=== PATIENT | female | born 1930 | race Hispanic/Latino ===

== ENCOUNTER 2017-08-13 17:11 | Inpatient (IN) | payer MEDICARE, MEDICAID ==
--- NOTE | 2017-08-13 17:23 | ED PDOC ---
Arrival/HPI - General Time Seen by Provider: 08/13/17 17:15 Historian: Family (Daughter), EMS - History of Present Illness Narrative History of Present Illness (Text): 08/13/17 17:16 A 87 year old female, whose past medical history includes diabetes, hypertension , and hypothyroidism, brought into the emergency department by EMS for chest pain and shortness of breath. Daughter reports patient woke up feeling weak this morning which worsened throughout the day. Patient began complaining of chest pain with shortness of breath 1 hour prior to arrival. EMS reports patients oxygen saturation was 80% on non rebreather and then 90% when placed on CPAP. Patient was given 40 mg of lasix, 2 sublingual nitroglycerin and 1/2 inch nitro paste. Patient unable to provide any further information at this time. PMD: Dr. Sol Supervisor Grounds: Dr. Lynn Time/Duration: 1 hour ([employer]) Symptom Course: Worsening Quality: Other Context: Home Past Medical History - Provider Review Nursing Documentation Reviewed: Yes - Infectious Disease Hx of Infectious Diseases: None - Cardiac Hx Cardiac Disorders: Yes (TRIPLE VESSEL DSE) Hx Hypertension: Yes - Pulmonary Hx Respiratory Disorders: No - Neurological Hx Neurological Disorder: (NEUROPATHY) - HEENT Hx HEENT Disorder: Yes (WEARS RX GLASSES,EYE SURGERY) Hx Cataracts: Yes - Renal Hx Renal Disorder: No - Endocrine/Metabolic Hx Endocrine Disorders: Yes Hx Diabetes Mellitus Type 1: Yes Hx Diabetes Mellitus Type 2: Yes Hx Hypothyroidism: Yes - Hematological/Oncological Hx Blood Disorders: No Hx Blood Transfusions: No - Integumentary Hx Dermatological Disorder: No - Musculoskeletal/Rheumatological Hx Musculoskeletal Disorders: Yes Hx Arthritis: Yes (OSTEOARTHRITIS) - Gastrointestinal Hx Gastrointestinal Disorders: Yes Hx Gall Bladder Disease: Yes (CHOLECYSTECTOMY) - Genitourinary/Gynecological Hx Genitourinary Disorders: Yes (URGENCY) - Psychiatric Hx Psychophysiologic Disorder: Yes (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) Hx Emotional Abuse: No Hx Physical Abuse: No Hx Substance Use: No - Surgical History Hx Cardiac Catheterization: Yes Hx Cholecystectomy: Yes Hx Hysterectomy: Yes - Anesthesia Hx Anesthesia Reactions: No Hx Malignant Hyperthermia: No - Suicidal Assessment Feels Threatened In Home Enviroment: No Family/Social History - Physician Review Nursing Documentation Reviewed: Yes Family/Social History: No Known Family HX Smoking Status: Never Smoked Hx Alcohol Use: No Hx Substance Use: No Allergies/Home Meds Allergies/Adverse Reactions: Allergies IV Contrast Allergy (Uncoded 08/13/17 17:17) ANAPHYLAXIS CONTRAST DYE Adverse Reaction (Uncoded 08/13/17 17:17) CHANGE IN MENTAL STATUS Home Medications: Home Meds Medication Instructions Recorded Confirmed Insulin Glargine,Hum.rec.anlog 25 unit SC QAM 12/21/14 08/13/17 [Lantus] Aspirin [Aspirin Chewable] 81 mg PO DAILY 01/22/16 08/13/17 Cholecalciferol (Vitamin D3) 50,000 units PO .WEEKLY 01/22/16 08/13/17 [Vitamin D] Clopidogrel [Plavix] 75 mg PO DAILY 01/22/16 08/13/17 Glimepiride [Glimepiride] 4 mg PO DAILY 01/22/16 08/13/17 Insulin Detemir [Levemir] 45 - 50 units SC .AM 01/22/16 08/13/17 Isosorbide Mononitrate [Isosorbide 30 mg PO DAILY 01/22/16 08/13/17 Mononitrate ER] Levothyroxine [Synthroid] 125 mcg PO DAILY 01/22/16 08/13/17 Linagliptin [Tradjenta] 5 mg PO DAILY 01/22/16 08/13/17 Metformin HCl [Metformin HCl] 850 mg PO DAILY 01/22/16 08/13/17 Metoprolol Tartrate [Lopressor] 25 mg PO BID 01/22/16 08/13/17 Rosuvastatin Calcium [Crestor] 5 mg PO DAILY 01/22/16 08/13/17 Valsartan/Hydrochlorothiazide 1 tab PO DAILY 01/22/16 08/13/17 [Valsartan-Hctz 160-25 mg Tab] amLODIPine [Norvasc] 5 mg PO DAILY 01/22/16 08/13/17 Cilostazol [Pletal] 2 tab PO DAILY 08/13/17 08/13/17 Review of Systems - Review of Systems Systems not reviewed;Unavailable: Acuity of Condition Physical Exam Vital Signs Temp Pulse Resp BP Pulse Ox 08/13/17 23:04 133 H 18 114/74 96 08/13/17 21:58 133 H 108/67 08/13/17 21:26 131 H 18 98/70 L 100 08/13/17 20:11 133 H 113/69 08/13/17 20:05 132 H 18 113/69 100 08/13/17 18:57 132 H 16 125/76 100 08/13/17 17:46 124 H 34 H 130/82 97 08/13/17 17:22 97.6 F 133 H 36 H 172/101 H 95 - Systems Exam Head: Present: Atraumatic, Normocephalic Pupils: Present: PERRL Extroacular Muscles: Present: EOMI Conjunctiva: Present: Normal Respiratory/Chest: Present: Respiratory Distress, Rales (bilaterally). No: Accessory Muscle Use Cardiovascular: Present: Regular Rate and Rhythm, Normal S1, S2. No: Murmurs Abdomen: Present: Normal Bowel Sounds. No: Tenderness, Distention, Peritoneal Signs Upper Extremity: Present: Normal Inspection. No: Cyanosis, Edema Lower Extremity: Present: Normal Inspection. No: Edema Skin: Present: Warm, Dry, Normal Color. No: Rashes Medical Decision Making ED Course and Treatment: 08/13/17 17:32 EKG shows sinus tachycardia at 134 BPM with nonspecific IVCD, nonspecific ST/T wave abnormalities. Interpreted by me. 08/13/17 17:45 Patient placed on BiPAP, she appears to be much more comfortable at this time. - Critical Care Critical Care Minutes: 45 minutes - Lab Interpretations Lab Results: 08/13/17 17:26 08/13/17 19:35 Lab Results 08/13/17 19:35: Sodium 134, Potassium 3.9, Chloride 98, Carbon Dioxide 24, Anion Gap 17, BUN 20, Creatinine 1.0, Est GFR ( Amer) > 60, Est GFR (Non- Af Amer) 52, Random Glucose 285 H, Calcium 9.2, Total Bilirubin 0.4, AST 36, ALT 22, Alkaline Phosphatase 83, Troponin I 0.06, NT-Pro-B Natriuret Pep 3860 H , Total Protein 8.1, Albumin 4.1, Globulin 4.0, Albumin/Globulin Ratio 1.0 L 08/13/17 18:26: Urine Color Yellow, Urine Appearance Clear, Urine pH 6.0, Ur Specific [place] 1.015, Urine Protein Trace H, Urine Glucose (UA) 500 H, Urine Ketones 15 H, Urine Blood Trace-lysed H, Urine Nitrate Negative, Urine Bilirubin Negative, Urine Urobilinogen 0.2, Ur Leukocyte Esterase Negative, Urine RBC 1 - 3, Urine WBC 2 - 5, Ur Epithelial Cells 3 - 4, Urine Bacteria Few 08/13/17 18:00: pCO2 31 L, pO2 170.0 H, HCO3 19.2 L, ABG pH 7.40, ABG Total CO2 20.2 L, ABG O2 Saturation 98.6 H, ABG O2 Content 17.7, ABG Base Excess -4.6 L, ABG Hemoglobin 12.9, ABG Carboxyhemoglobin 1.6 H, POC ABG HHb (Measured) 1.4, ABG Methemoglobin 1.1, ABG O2 Capacity 18.0, Hgb O2 Saturation 95.9, FiO2 100.0 08/13/17 17:26: PT 10.7, INR 0.98, APTT 26.5 08/13/17 17:26: WBC 21.6 H D, RBC 4.36, Hgb 13.6, Hct 40.3, MCV 92.4, MCH 31.2, MCHC 33.7, RDW 14.8 H, Plt Count 428, MPV 9.5, Gran % 62.3, Lymph % (Auto) 32.1 , [place] % (Auto) 5.0, Eos % (Auto) 0.4 L, Baso % (Auto) 0.2, Gran # 13.45 H, Lymph # 6.9 H, Preston # 1.1 H, Eos # 0.1, Baso # 0.05 - RAD Interpretation Radiology Orders: 08/13/17 17:20 CHEST PORTABLE [RAD] Stat - Medication Orders Current Medication Orders: Aspirin (Aspirin Chewable) 81 mg PO DAILY [facility] Last Admin: 08/15/17 09:00 Dose: 81 mg Atorvastatin Calcium (Lipitor) 10 mg PO DIN [facility] Last Admin: 08/15/17 17:40 Dose: 10 mg Clopidogrel Bisulfate (Plavix) 75 mg PO DAILY [facility] Last Admin: 08/15/17 08:59 Dose: 75 mg Furosemide (Lasix) 40 mg IVP BID [facility] Last Admin: 08/15/17 17:41 Dose: 40 mg MAR Blood Pressure Document 08/15/17 17:41 RAMOM (Rec: 08/15/17 17:41 [facility] [id number]) Blood Pressure Blood Pressure (100/60-150/90) 118/59 IVP Administration Document 08/15/17 17:41 RAMOM (Rec: 08/15/17 17:41 [facility] [id number]) Charges for Administration # of IVP Administrations 1 Heparin Sodium/Sodium Chloride (Heparin 71469 Units/250ml 1/2 Normal Saline) 25 ,000 units in 250 mls @ 10.018 mls/hr IV .Q24H PRN; Protocol; 18 UNITS/KG/HR PRN Reason: ADJUST RATE PER PROTOCOL Last Titration: 08/15/17 07:42 Dose: 17 units/kg/hr, 9.462 mls/hr Titration Intervention Document 08/15/17 07:42 RAMOM (Rec: 08/15/17 07:45 [facility] [id number]) Titration Intake Titration Intake 100 Cumulative Intake 100 Cumulative Intake (Rx) 350 Waste Amount 0 Container Volume 150 Titration Dosing Titration Dose 17 IV Rate 9.462 Intake/Decrease Increased Cumulative Dose 99698 Insulin Detemir (Levemir) 30 unit SC HS [facility] Insulin Human Regular (Humulin R High) 0 units SC ACHS [facility] PRN Reason: Protocol Last Admin: 08/15/17 17:36 Dose: 12 units MAR Blood Glucose Document 08/15/17 17:36 RAMOM (Rec: 08/15/17 17:36 [facility] [id number]) Blood Glucose Finger Stick Blood Glucose (70-120) 349 Subcutaneous Administrations Document 08/15/17 17:36 RAMOM (Rec: 08/15/17 17:36 [facility] [id number]) Injection Site MAR Injection Site Right Arm Charges for Administration # of Subcutaneous Administrations 1 Levothyroxine Sodium (Synthroid) 150 mcg PO ACB [facility] Pantoprazole Sodium (Protonix Ec Tab) 40 mg PO DAILY [facility] Last Admin: 08/15/17 09:00 Dose: 40 mg Simethicone (Mylicon Liq) 40 mg PO QID [facility] Last Admin: 08/15/17 17:42 Dose: 40 mg Verapamil HCl (Verapamil Inj) 2.5 mg IVP Q6H PRN PRN Reason: For heart rate>130 Verapamil HCl (Calan Tab) 80 mg PO TID [facility] Last Admin: 08/15/17 17:40 Dose: 80 mg MAR Pulse and Blood Pressure Document 08/15/17 17:40 RAMOM (Rec: 08/15/17 17:40 [id number]) Pulse Pulse Rate (60-90) 85 Blood Pressure Blood Pressure (100/60-150/90) 118/59 Discontinued Medications Adenosine (Adenosine 6 Mg/2 Ml Inj) 6 mg IVP ONCE ONE Stop: 08/14/17 07:46 Last Admin: 08/14/17 08:08 Dose: 6 mg IVP Administration Document 08/14/17 08:08 RAMOM (Rec: 08/14/17 08:08 [id number]) Charges for Administration # of IVP Administrations 1 Aspirin (Aspirin Supp) 300 mg RC STAT STA Stop: 08/13/17 17:36 Last Admin: 08/13/17 18:02 Dose: 300 mg MAR Pain/Vitals Document 08/13/17 18:02 OCS (Rec: 08/13/17 18:03 OCS [id number]) Pain Reassessment Is This A Pain ReAssessment? Yes Sleep Is patient sleeping during reassessment? No Presence of Pain Presence of Pain No Digoxin (Lanoxin) 0.25 mg IVP ONCE ONE Stop: 08/15/17 08:14 Last Admin: 08/15/17 08:52 Dose: 0.25 mg MAR Apical Pulse Rate Document 08/15/17 08:52 RAMOM (Rec: 08/15/17 08:53 [id number]) Apical Pulse Rate Apical Pulse Rate (60-90 beats/min) 129 IVP Administration Document 08/15/17 08:52 RAMOM (Rec: 08/15/17 08:53 [id number]) Charges for Administration # of IVP Administrations 1 Digoxin (Lanoxin) 0.25 mg IVP ONCE ONE Stop: 08/15/17 13:01 Last Admin: 08/15/17 13:22 Dose: 0.25 mg MAR Apical Pulse Rate Document 08/15/17 13:22 RAMOM (Rec: 08/15/17 13:22 [id number]) Apical Pulse Rate Apical Pulse Rate (60-90 beats/min) 103 IVP Administration Document 08/15/17 13:22 RAMOM (Rec: 08/15/17 13:22 [id number]) Charges for Administration # of IVP Administrations 1 Diltiazem HCl (Cardizem) 10 mg IVP STAT STA Stop: 08/13/17 21:31 Last Admin: 08/13/17 21:58 Dose: 10 mg IVP Administration Document 08/13/17 21:58 IT (Rec: 08/13/17 21:59 IT [id number]) Charges for Administration # of IVP Administrations 1 MAR Pulse and Blood Pressure Document 08/13/17 21:58 IT (Rec: 08/13/17 21:59 IT [id number]) Pulse Pulse Rate (60-90) 133 Blood Pressure Blood Pressure (100/60-150/90) 108/67 Furosemide (Lasix) 20 mg IVP Q12 [facility] Last Admin: 08/15/17 09:00 Dose: 20 mg MAR Blood Pressure Document 08/15/17 09:00 RAMOM (Rec: 08/15/17 09:00 [id number]) Blood Pressure Blood Pressure (100/60-150/90) 138/73 IVP Administration Document 08/15/17 09:00 RAMOM (Rec: 08/15/17 09:00 [facility] [id number]) Charges for Administration # of IVP Administrations 1 Furosemide (Lasix) 40 mg IVP ONCE ONE Stop: 08/15/17 12:15 Last Admin: 08/15/17 13:21 Dose: 40 mg MAR Blood Pressure Document 08/15/17 13:21 RAMOM (Rec: 08/15/17 13:22 [facility] [id number]) Blood Pressure Blood Pressure (100/60-150/90) 120/68 IVP Administration Document 08/15/17 13:21 RAMOM (Rec: 08/15/17 13:22 [id number]) Charges for Administration # of IVP Administrations 1 Heparin Sodium (Porcine) (Heparin) 3,800 units 70 units/kg (3800 units) IV ONCE ONE PRN Reason: Protocol Stop: 08/13/17 21:31 Last Admin: 08/13/17 21:59 Dose: 3,800 units eMAR Start Stop Document 08/13/17 21:59 IT (Rec: 08/13/17 22:00 IT [id number]) Intravenous Solution Start Date 08/13/17 Start Time 22:00 Heparin Sodium (Porcine) (Heparin) 2,300 units IV ONCE ONE Stop: 08/15/17 08:01 Last Admin: 08/15/17 08:00 Dose: 2,300 units eMAR Start Stop Document 08/15/17 08:00 RAMOM (Rec: 08/15/17 08:03 [facility] [id number]) Intravenous Solution Start Date 08/15/17 Start Time 08:00 End Date 08/15/17 End time 08:05 Total Infusion Time 5 Heparin Sodium/Sodium Chloride (Heparin 78313 Units/250ml 1/2 Normal Saline) 25 ,000 units in 250 mls @ 9.716 mls/hr IV .Q24H PRN; Protocol; 18 UNITS/KG/HR PRN Reason: ADJUST RATE PER PROTOCOL Last Admin: 08/13/17 22:13 Dose: 18 units/kg/hr, 9.716 mls/hr eMAR Start Stop Document 08/13/17 22:13 IT (Rec: 08/13/17 22:14 IT [id number]) Intravenous Solution Start Date 08/13/17 Start Time 22:13 Titration Intervention Document 08/13/17 22:13 IT (Rec: 08/13/17 22:14 IT [id number]) Titration Intake Waste Amount 0 Container Volume 250 Titration Dosing Titration Dose 18 IV Rate 9.716 Intake/Decrease Started Heparin Sodium/Dextrose (Heparin 25,000 Units/250ml In D5w) 25,000 units in 250 mls @ 10.018 mls/hr IV .Q24H PRN; Protocol; 18 UNITS/KG/HR PRN Reason: ADJUST RATE PER PROTOCOL Last Admin: 08/13/17 22:48 Dose: 18 units/kg/hr, 10.018 mls/hr eMAR Start Stop Document 08/13/17 22:48 IT (Rec: 08/13/17 22:48 IT [id number]) Intravenous Solution Start Date 08/13/17 Start Time 22:48 Titration Intervention Document 08/13/17 22:48 IT (Rec: 08/13/17 22:48 IT [id number]) Titration Intake Waste Amount 0 Container Volume 250 Titration Dosing Titration Dose 18 IV Rate 10.018 Intake/Decrease Started Amiodarone HCl/Dextrose (Nexterone 150 Mg In Dextrose 100 Ml (Premix)) 150 mg in 100 mls @ 600 mls/hr IVPB ONCE ONE PRN Reason: Protocol Stop: 08/14/17 03:21 Last Admin: 08/14/17 03:24 Dose: 600 mls/hr eMAR Start Stop Document 08/14/17 03:24 QES (Rec: 08/14/17 03:24 [facility]ES [id number]) Intravenous Solution Start Date 08/14/17 Start Time 03:24 End Date 08/14/17 End time 03:34 Total Infusion Time 10 Amiodarone HCl/Dextrose (Nexterone 360 Mg In D5w 200 Ml (Premix)) 360 mg in 200 mls @ 33.333 mls/hr IV .Q6H [facility]; 1 MG/MIN PRN Reason: Protocol Last Admin: 08/14/17 03:35 Dose: 33.333 mls/hr eMAR Start Stop Document 08/14/17 03:35 QES (Rec: 08/14/17 03:36 [id number]) Intravenous Solution Start Date 08/14/17 Start Time 03:36 End Date 08/14/17 End time 07:30 Total Infusion Time 234 diltiaZEM IVPB 100mg in NS (Cardizem 100mg In Ns) 100 mls @ 5 mls/hr IV .Q20H PRN; Protocol; 5 MG/HR PRN Reason: TITRATE PER MD ORDER Stop: 08/15/17 11:00 Last Titration: 08/15/17 10:00 Dose: 0 mg/hr, 0 mls/hr Titration Intervention Document 08/15/17 10:00 RAMOM (Rec: 08/15/17 11:59 [id number]) Titration Intake Titration Intake 5 Cumulative Intake 100 Cumulative Intake (Rx) 200 Waste Amount 0 Container Volume 0 Titration Dosing Titration Dose 0 IV Rate 0 Intake/Decrease Infused Cumulative Dose 200 Potassium Chloride (Potassium Chloride 20 Meq/100 Ml) 20 meq in 100 mls @ 50 mls/hr IVPB Q2H [facility] Stop: 08/14/17 11:29 Last Admin: 08/14/17 11:45 Dose: 50 mls/hr eMAR Start Stop Document 08/14/17 11:45 RAMOM (Rec: 08/14/17 12:11 [id number]) Intravenous Solution Start Date 08/14/17 Start Time 11:45 End Date 08/14/17 End time 14:45 Total Infusion Time 180 Insulin Human Regular (Humulin R Med) 0 units SC ACHS [facility] PRN Reason: Protocol Last Admin: 08/15/17 08:04 Dose: 3 units MAR Blood Glucose Document 08/15/17 08:04 RAMOM (Rec: 08/15/17 08:04 [id number]) Blood Glucose Finger Stick Blood Glucose (70-120) 201 Subcutaneous Administrations Document 08/15/17 08:04 RAMOM (Rec: 08/15/17 08:04 [id number]) Injection Site MAR Injection Site Left Arm Charges for Administration # of Subcutaneous Administrations 1 Lactulose (Enulose) 20 gm PO ONCE STA Stop: 08/15/17 08:58 Last Admin: 08/15/17 09:01 Dose: 20 gm Levothyroxine Sodium (Synthroid) 125 mcg PO ACB [facility] Last Admin: 08/14/17 08:18 Dose: 125 mcg Levothyroxine Sodium (Synthroid) 200 mcg PO 0600 [facility] Last Admin: 08/15/17 06:02 Dose: 200 mcg Metoprolol Tartrate (Lopressor) 5 mg IVP STAT STA Stop: 08/13/17 20:05 Last Admin: 08/13/17 20:11 Dose: 5 mg IVP Administration Document 08/13/17 20:11 IT (Rec: 08/13/17 20:11 IT [id number]) Charges for Administration # of IVP Administrations 1 MAR Pulse and Blood Pressure Document 08/13/17 20:11 IT (Rec: 08/13/17 20:11 IT [id number]) Pulse Pulse Rate (60-90) 133 Blood Pressure Blood Pressure (100/60-150/90) 113/69 Metoprolol Tartrate (Lopressor) 25 mg PO BID [facility] Metoprolol Tartrate (Lopressor) 5 mg IVP ONCE ONE Stop: 08/14/17 00:30 Last Admin: 08/14/17 00:47 Dose: 5 mg IVP Administration Document 08/14/17 00:47 QES (Rec: 08/14/17 00:47 QES [id number]) Charges for Administration # of IVP Administrations 1 MAR Pulse and Blood Pressure Document 08/14/17 00:47 QES (Rec: 08/14/17 00:47 QES [id number]) Pulse Pulse Rate (60-90) 137 Blood Pressure Blood Pressure (100/60-150/90) 113/75 Pantoprazole Sodium (Protonix Inj) 40 mg IVP DAILY [facility] Last Admin: 08/14/17 10:13 Dose: 40 mg IVP Administration Document 08/14/17 10:13 RAMOM (Rec: 08/14/17 10:13 [id number]) Charges for Administration # of IVP Administrations 1 Pneumococcal Polyvalent Vaccine (Pneumovax 23 Vaccine) 0.5 ml IM .ONCE ONE Stop: 08/14/17 02:44 Last Admin: 08/14/17 03:15 Dose: MAR Immunization Data Document 08/14/17 03:15 QES (Rec: 08/14/17 03:15 [facility] [id number]) Immunization Data Vaccine Information Sheet Given No Immunization Registry Document 08/14/17 03:15 QES (Rec: 08/14/17 03:15 [facility] [id number]) Immunization Registry Consent Date 08/08/17 Polyethylene Glycol (Miralax) 17 gm PO ONCE ONE Stop: 08/14/17 18:06 Last Admin: 08/14/17 18:08 Dose: 17 gm Polyethylene Glycol (Miralax) 17 gm PO ONCE ONE Stop: 08/15/17 13:05 Last Admin: 08/15/17 13:21 Dose: 17 gm Verapamil HCl (Verapamil Inj) 2.5 mg IVP STAT STA Stop: 08/13/17 23:13 Last Admin: 08/13/17 23:30 Dose: 2.5 mg IVP Administration Document 08/13/17 23:30 QES (Rec: 08/13/17 23:31 [id number]) Charges for Administration # of IVP Administrations 1 MAR Pulse and Blood Pressure Document 08/13/17 23:30 QES (Rec: 08/13/17 23:31 [id number]) Pulse Pulse Rate (60-90) 135 Blood Pressure Blood Pressure (100/60-150/90) 133/79 Verapamil HCl (Verapamil Inj) 2.5 mg IVP ONCE ONE Stop: 08/14/17 08:05 Last Admin: 08/14/17 10:13 Dose: 2.5 mg IVP Administration Document 08/14/17 10:13 RAMOM (Rec: 08/14/17 10:14 [id number]) Charges for Administration # of IVP Administrations 1 MAR Pulse and Blood Pressure Document 08/14/17 10:13 [facility] (Rec: 08/14/17 10:14 [id number]) Pulse Pulse Rate (60-90) 126 Blood Pressure Blood Pressure (100/60-150/90) 115/63 Verapamil HCl (Calan Tab) 40 mg PO TID [facility] Last Admin: 08/14/17 18:03 Dose: 40 mg MAR Pulse and Blood Pressure Document 08/14/17 18:03 RAMOM (Rec: 08/14/17 18:04 [id number]) Pulse Pulse Rate (60-90) 118 Blood Pressure Blood Pressure (100/60-150/90) 103/65 - Scribe Statement The provider has reviewed the documentation as recorded by the Sinibdavid Greenberg Provider Scribe Attestation: All medical record entries made by the Scribe were at my direction and personally dictated by me. I have reviewed the chart and agree that the record accurately reflects my personal performance of the history, physical exam, medical decision making, and the department course for this patient. I have also personally directed, reviewed, and agree with the discharge instructions and disposition. Disposition/Present on Arrival - Present on Arrival Any Indicators Present on Arrival: No History of DVT/PE: No History of Uncontrolled Diabetes: No Urinary Catheter: No History Surgical Site Infection Following: None - Disposition Have Diagnosis and Disposition been Completed?: Yes Diagnosis: Acute respiratory failure, CHF exacerbation Disposition: HOSPITALIZED Disposition Time: 19:56 Condition: GUARDED
[2017-08-13 17:42] LABS: BASO # 0.05 K/mm3 (0.0-2.0); BASO % 0.2 % (0.0-3.0); EOS # 0.1 (0.0-0.7); EOS % 0.4 % (1.5-5.0); GRAN # 13.45 (1.4-6.5); GRAN % 62.3 % (50.0-68.0); HEMATOCRIT 40.3 % (36.0-48.0); LYMPH # 6.9 (1.2-3.4); LYMPH % 32.1 % (22.0-35.0); MEAN CELL VOLUME 92.4 fl (80.0-105.0); MEAN CORPUSCULAR HEMOGLOBIN 31.2 pg (25.0-35.0); MEAN CORPUSCULAR HGB CONC 33.7 g/dl (31.0-37.0); MEAN PLATELET VOLUME 9.5 fl (7.0-11.0); MONO # 1.1 (0.1-0.6); RED CELL DISTRIBUTION WIDTH 14.8 % (11.5-14.5); WHITE BLOOD COUNT 21.6 10^3/ul (4.5-11.0)
[2017-08-13 17:52] LABS: INR 0.98 (0.93-1.08)
[2017-08-13 17:53] LABS: PARTIAL THROMBOPLASTIN TIME 26.5 Seconds (25.1-36.5)
--- NOTE | 2017-08-13 18:09 | RAD ---
HISTORY: Shortness of breath COMPARISON: 01/24/2015. FINDINGS: LUNGS: There is severe pulmonary venous congestion and mild interstitial pulmonary edema. PLEURA: There are bilateral pleural effusions, no pneumothorax apparent. CARDIOVASCULAR: There is mild cardiomegaly. OSSEOUS STRUCTURES: Within normal limits for the patient's age. VISUALIZED UPPER ABDOMEN: Normal. OTHER FINDINGS: None. IMPRESSION: Findings are most compatible with congestive heart failure.
[2017-08-13 18:15] LABS: ARTERIAL BLOOD GAS HCO3 19.2 mmol/L (21-28); ARTERIAL BLOOD GAS O2 CONTENT 17.7 ML/dl (15-23); ARTERIAL BLOOD HGB O2 SAT 95.9 % (95.0-98.0); CARBOXYHEMOGLOBIN 1.6 % (0.5-1.5); HHB 1.4 % (0-5); METHEMOGLOBIN 1.1 % (0.0-3.0)
[2017-08-13 18:51] LABS: URINE BILIRUBIN NEGATIVE (NEGATIVE); URINE BLOOD TRACE-LYSED (NEGATIVE); URINE GLUCOSE (UA) 500 mg/dL (NEGATIVE); URINE KETONE 15 mg/dL (NEGATIVE); URINE LEUKOCYTE ESTERASE NEGATIVE Leu/uL (NEGATIVE); URINE PROTEIN TRACE mg/dL (<30 mg/dL); URINE UROBILINOGEN 0.2 E.U./dL (<1 E.U./dL)
[2017-08-13 18:54] LABS: URINE APPEARANCE CLEAR (CLEAR); URINE COLOR YELLOW (YELLOW)
[2017-08-13 18:57] LABS: URINE BACTERIA FEW (NEG)
--- NOTE | 2017-08-13 19:36 | CARD ---
APPROVED REPORT EKG Measurement Heart [id number] <Conclusion> Atrial fibrillation with rapid ventricular response Nonspecific intraventricular block Cannot rule out Septal infarct, age undetermined T wave abnormality, consider lateral ischemia or digitalis effect Abnormal ECG
[2017-08-13 19:50] LABS: ALKALINE PHOSPHATASE 83 U/L (38-126); ALT/SGPT 22 U/L (7-56); AST/SGOT 36 U/L (14-36); BILIRUBIN,TOTAL 0.4 mg/dL (0.2-1.3); BLOOD UREA NITROGEN 20 mg/dL (7-21); CALCIUM 9.2 mg/dL (8.4-10.5); CARBON DIOXIDE 24 mmol/L (21-33); CHLORIDE 98 mmol/L (98-107); GFR AFRICAN-AMERICAN > 60; GLUCOSE,RANDOM 285 mg/dL (70-110); POTASSIUM 3.9 mmol/L (3.6-5.0); SODIUM 134 mmol/L (132-148); TOTAL PROTEIN 8.1 g/dL (5.8-8.3)
[2017-08-13 20:02] LABS: TROPONIN I 0.06 ng/mL
[2017-08-13] MEDS ORDERED: Metoprolol 1 mg/ml Inj IVP STA (20:04)
--- NOTE | 2017-08-13 20:11 | CP.PCM.HP ---
<Praneeth Reed - Last Filed: 08/13/17 22:02> History of Present Illness - History of Present Illness History of Present Illness: CC: chest palpitations Subjective: HPI: Patient is a 87 year old female, whose past medical history includes diabetes, hypertension, and hypothyroidism, who presents to the ED via EMS for evaluation and treatment of chest palipitations and shortness of breath. Daughter is at bedside. Daughter states patient woke up feeling weak this morning which worsened throughout the day. Patient denies specific provoking events. Also admitted to chest palpitations with chest discomfort. Denies recent travel and sick contacts. Patient began complaining of nonradiating chest pain with shortness of breath 1 hour prior to arrival. As per the ED note, the EMS reports patients oxygen saturation was 80% on non rebreather and then 90% when placed on CPAP. Patient was given 40 mg of lasix, 2 sublingual nitroglycerin and 1/2 inch nitro paste in route to ED. Patient denies intractable headache, fever, chills, dizziness, blurry vision, ringing in the ears, abdominal pain, nausea, vomiting, diarrhea, constipation, and urinary symptoms. ROS: 12 point review of systems negative except as indicated in HPI PMHx: diabetes, hypertension, and hypothyroidism PSHx: cholecystecomy, hysterectomy, thyroidectomy Family Hx: noncontributory Social Hx: denies ETOH use, tobacco use, illicit drug use Medications: Please see medication reconciliation PMD: Dr. Sol Solid Surface Fabricator: Dr. Lynn Physical Examination: - Constitutional Appears: Non-toxic, No Acute Distress - Head Exam Head Exam: atraumatic, normocephalic - Eye Exam Eye Exam: Normal appearance, PERRL. absent: Scleral icterus - ENT Exam ENT Exam: Mucous Membranes Moist - Neck Exam Neck exam: Normal Inspection - Respiratory Exam Respiratory Exam: Normal Breathing Pattern; bibasilar crackles - Cardiovascular Exam Cardiovascular Exam: tachycardic, +S1, +S2. absent: Gallop, JVD - GI/Abdominal Exam GI & Abdominal Exam: Normal Bowel Sounds, absent: Distended, Guarding, Pulsatile Mass, Rebound, Rigid - Extremities Exam Extremities exam: Negative for: calf tenderness; edema present - Neurological Exam Neurological exam: Patient is awake, alert, responds to verbal stimuli, answers questions appropriately, follows commands, and moves extremities past midline - Psychiatric Exam Psychiatric exam: Normal Affect, Normal Mood - Skin Skin Exam: warm and dry Assessment and Plan: Patient is a 87 year old female, whose past medical history includes diabetes, hypertension, and hypothyroidism, who presents to the ED via EMS for evaluation and treatment of chest pain and shortness of breath. Junctional Rhythm with Tachycardia - rate control with cardizem one type dose- limited use due to hypotension, lopressor starting tomorrow with hold parameter- hold if HR is less than 80 bpm , SBP less than 100mmHg - CHADVASC2 - greater than 2, anticoagulation indicated- heparin gtt started - EKG reviewed and appreciated - Junctional Tachycardia-- RVR HR 126, QtC 567 - TSH pending - ECHO pending - cardiac enzymes q8h x 3, first troponins negative - cardiology consulted- apprecaite recommendations - possible hypoxia as etiology- need to rule out PE DVT- Duplex ultrasound bilaterally LE Chest Pain - rule out ACS - EKG reviewed and appreciated - Junctional Tachycardia-- RVR HR 126, QtC 567 - cardiac enzymes q8h x 3, first troponins negative - aspirin and plavix - lipid profile and A1C pending - consider cardiology consult pending patient's clinical course SIRS Criteria Met - not sepsis- no source - blood cultures x 2 - urine culture - procalcitonin pending Acute on Chronic CHF Exacerbation - HR and BP reviewed, trended, and appreciated - CXR appreciated- bilateral pleural effusions noted - strict i and o - daily weight - ECHO pending - consider repeating CXR/ attaining chest CT pending patient clinical course - Bipap IPAP 12, EPAP 6, FiO2 40 Hx of Htn - BP noted- lower end of normal- hold home BP medications - consider hydralazine 5mg IV q6 prn SBP > 180, holding parameters- do not administer if HR is > 100 bpm if BPs trend up Hx of Hyperlipidemia - c/w statin - lipid profile pending Hx of Diabetes - hold home diabetic medications - fingersticks ACHS - insulin sliding scale- lispro medium - resume diet as carb consistent Hx of Hypothyroidism - TSH pending - continue home synthroid- may be cause of junctional tachycardia Prophylaxis - DVT ppx- heparin gtt - GI ppx- protonix Patient case discussed with and plan approved by attending physician, Dr Princess Lucas. Praneeth Reed PGY1 Present on Admission - Present on Admission Any Indicators Present on Admission: No Past Patient History - Infectious Disease Hx of Infectious Diseases: None - Past Social History Smoking Status: Never Smoked - CARDIAC Hx Cardiac Disorders: Yes (TRIPLE VESSEL DSE) Hx Hypertension: Yes - PULMONARY Hx Respiratory Disorders: No - NEUROLOGICAL Hx Neurological Disorder: (NEUROPATHY) - HEENT Hx HEENT Problems: Yes (WEARS RX GLASSES,EYE SURGERY) Hx Cataracts: Yes - RENAL Hx Chronic Kidney Disease: No - ENDOCRINE/METABOLIC Hx Endocrine Disorders: Yes Hx Diabetes Mellitus Type 1: Yes Hx Diabetes Mellitus Type 2: Yes Hx Hypothyroidism: Yes - HEMATOLOGICAL/ONCOLOGICAL Hx Blood Disorders: No Hx Blood Transfusions: No - INTEGUMENTARY Hx Dermatological Problems: No - MUSCULOSKELETAL/RHEUMATOLOGICAL Hx Musculoskeletal Disorders: Yes Hx Arthritis: Yes (OSTEOARTHRITIS) - GASTROINTESTINAL Hx Gastrointestinal Disorders: Yes Hx Gall Bladder Disease: Yes (CHOLECYSTECTOMY) - GENITOURINARY/GYNECOLOGICAL Hx Genitourinary Disorders: Yes (URGENCY) - PSYCHIATRIC Hx Psychophysiologic Disorder: Yes (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) Hx Emotional Abuse: No Hx Physical Abuse: No Hx Substance Use: No - SURGICAL HISTORY Hx Cardiac Catheterization: Yes Hx Cholecystectomy: Yes Hx Hysterectomy: Yes - ANESTHESIA Hx Anesthesia Reactions: No Hx Malignant Hyperthermia: No Meds Allergies/Adverse Reactions: Allergies Allergy/AdvReac Type Severity Reaction Status Date / Time IV Contrast Allergy ANAPHYLAXIS Uncoded 08/13/17 17:17 CONTRAST DYE AdvReac CHANGE IN Uncoded 08/13/17 17:17 MENTAL STATUS Results - Vital Signs Recent Vital Signs: Last Vital Signs Temp 97.6 F 08/13/17 17:22 Pulse 132 H 08/13/17 18:57 Resp 16 08/13/17 18:57 BP 125/76 08/13/17 18:57 Pulse Ox 100 08/13/17 18:57 - Labs Result Diagrams: 08/13/17 17:26 08/13/17 19:35 Labs: Laboratory Results - last 24 hr 08/13/17 08/13/17 08/13/17 17:26 17:26 18:00 WBC 21.6 H D RBC 4.36 Hgb 13.6 Hct 40.3 MCV 92.4 MCH 31.2 MCHC 33.7 RDW 14.8 H Plt Count 428 MPV 9.5 Gran % 62.3 Lymph % (Auto) 32.1 Coos % (Auto) 5.0 Eos % (Auto) 0.4 L Baso % (Auto) 0.2 Gran # 13.45 H Lymph # 6.9 H Coos # 1.1 H Eos # 0.1 Baso # 0.05 PT 10.7 INR 0.98 APTT 26.5 pCO2 31 L pO2 170.0 H HCO3 19.2 L ABG pH 7.40 ABG Total CO2 20.2 L ABG O2 Saturation 98.6 H ABG O2 Content 17.7 ABG Base Excess -4.6 L ABG Hemoglobin 12.9 ABG Carboxyhemoglobin 1.6 H POC ABG HHb (Measured) 1.4 ABG Methemoglobin 1.1 ABG O2 Capacity 18.0 Hgb O2 Saturation 95.9 FiO2 100.0 Sodium Potassium Chloride Carbon Dioxide Anion Gap BUN Creatinine Est GFR ( Amer) Est GFR (Non-Af Amer) Random Glucose Calcium Total Bilirubin AST ALT Alkaline Phosphatase Total Protein Albumin Globulin Albumin/Globulin Ratio Urine Color Urine Appearance Urine pH Ur Specific [place] Urine Protein Urine Glucose (UA) Urine Ketones Urine Blood Urine Nitrate Urine Bilirubin Urine Urobilinogen Ur Leukocyte Esterase Urine RBC Urine WBC Ur Epithelial Cells Urine Bacteria 08/13/17 08/13/17 18:26 19:35 WBC RBC Hgb Hct MCV MCH MCHC RDW Plt Count MPV Gran % Lymph % (Auto) [place] % (Auto) Eos % (Auto) Baso % (Auto) Gran # Lymph # [place] # Eos # Baso # PT INR APTT pCO2 pO2 HCO3 ABG pH ABG Total CO2 ABG O2 Saturation ABG O2 Content ABG Base Excess ABG Hemoglobin ABG Carboxyhemoglobin POC ABG HHb (Measured) ABG Methemoglobin ABG O2 Capacity Hgb O2 Saturation FiO2 Sodium 134 Potassium 3.9 Chloride 98 Carbon Dioxide 24 Anion Gap 17 BUN 20 Creatinine 1.0 Est GFR ( Amer) > 60 Est GFR (Non-Af Amer) 52 Random Glucose 285 H Calcium 9.2 Total Bilirubin 0.4 AST 36 ALT 22 Alkaline Phosphatase 83 Total Protein 8.1 Albumin 4.1 Globulin 4.0 Albumin/Globulin Ratio 1.0 L Urine Color Yellow Urine Appearance Clear Urine pH 6.0 Ur Specific [place] 1.015 Urine Protein Trace H Urine Glucose (UA) 500 H Urine Ketones 15 H Urine Blood Trace-lysed H Urine Nitrate Negative Urine Bilirubin Negative Urine Urobilinogen 0.2 Ur Leukocyte Esterase Negative Urine RBC 1 - 3 Urine WBC 2 - 5 Ur Epithelial Cells 3 - 4 Urine Bacteria Few <LanceSukhwinder P - Last Filed: 08/14/17 05:32> Results - Vital Signs Recent Vital Signs: Last Vital Signs Temp 98.3 F 08/14/17 05:19 Pulse 128 H 08/14/17 05:19 Resp 28 H 08/14/17 05:19 BP 131/80 08/14/17 05:19 Pulse Ox 90 L 08/14/17 05:19 - Labs Result Diagrams: 08/13/17 17:26 08/13/17 19:35 Labs: Laboratory Results - last 24 hr 08/13/17 08/13/17 23:32 23:45 POC Glucose (mg/dL) 222 H TSH 3rd Generation 27.10 H Attending/Attestation - Attestation I have personally seen and examined this patient.: Yes I have fully participated in the care of the patient.: Yes I have reviewed all pertinent clinical information: Yes Notes (Text): 87 f with h/o IDDM, htn, contrast allergy/reaction mentioned in prior notes in jun 2015 post cath as metabolic encephalopathy and contrast induced nephropathy , h/o OM1 lession, presented to ER with SOB and tachycardia x1 day, CXR in ER showed pulm interstitial congestion, hypoxia needing about 50% fio2/bipap, tachycardia upon use of verapamil was aflutter with 3:1 and variable conduction. DD Ischemia induced aflutter, chf, vs chf from tachycardia, vs tachycardia from chf vs PE Plan Continue asa, plavix, started on heparin drip for aflutter, dd of pe, venous doppler of legs, amiodarone drip control rate and rhythm, continue metoprolol if these not adequate will use calcium valerie blockers for rate control. Confirm diabetic meds, patient's daughter will bring the meds from home then will be restarted. GI/DVt prophylaxis, cardiology consult, see orders for detail.
[2017-08-13] MEDS ORDERED: Heparin25000 units/250ml 1/2NS 25,000 UNITS/250 ML BAG IV PRN (21:33)
[2017-08-13] MEDS ORDERED: Heparin 25,000units in D5W /250 ML BAG IV PRN (22:46)
[2017-08-13] MEDS: Insulin Reg-MEDIUM-Coverage SC SCH (23:45)
[2017-08-14] MEDS ORDERED: Metoprolol 1 mg/ml Inj IVP ONE (00:29)
[2017-08-14] MEDS ORDERED: Pneumococcal 23-Valent Vaccine IM ONE (02:43)
[2017-08-14 02:44] VITALS: BMI 23.6
[2017-08-14] MEDS: Heparin25000 units/250ml 1/2NS 25,000 UNITS/250 ML BAG IV PRN ×2 (02:47→19:00)
[2017-08-14] MEDS ORDERED: Amiodarone 150 mg/D5W 100 ml 150 MG/100 ML BAG IVPB ONE ×2 (03:12→03:13)
[2017-08-14] MEDS ORDERED: Amiodarone 360 mg/D5W 200 ml 360 MG/200 ML BAG IV SCH ×3 (03:15→09:45)
[2017-08-14 05:36] LABS: BASO # 0.03 K/mm3 (0.0-2.0); BASO % 0.2 % (0.0-3.0); EOS # 0.1 (0.0-0.7); EOS % 0.9 % (1.5-5.0); GRAN # 8.73 (1.4-6.5); GRAN % 69.4 % (50.0-68.0); HEMATOCRIT 36.2 % (36.0-48.0); LYMPH # 2.9 (1.2-3.4); LYMPH % 22.7 % (22.0-35.0); MEAN CELL VOLUME 90.3 fl (80.0-105.0); MEAN CORPUSCULAR HEMOGLOBIN 30.9 pg (25.0-35.0); MEAN CORPUSCULAR HGB CONC 34.3 g/dl (31.0-37.0); MEAN PLATELET VOLUME 9.3 fl (7.0-11.0); MONO # 0.9 (0.1-0.6); MONO % 6.8 % (1.0-6.0); RED CELL DISTRIBUTION WIDTH 14.5 % (11.5-14.5); WHITE BLOOD COUNT 12.6 10^3/ul (4.5-11.0)
[2017-08-14 05:50] LABS: ALKALINE PHOSPHATASE 83 U/L (38-126); ALT/SGPT 25 U/L (7-56); AST/SGOT 35 U/L (14-36); BILIRUBIN,TOTAL 0.6 mg/dL (0.2-1.3); BLOOD UREA NITROGEN 19 mg/dL (7-21); CALCIUM 9.3 mg/dL (8.4-10.5); CARBON DIOXIDE 26 mmol/L (21-33); CHLORIDE 98 mmol/L (98-107); CHOLESTEROL 144 mg/dL (130-200); GFR AFRICAN-AMERICAN > 60; GLUCOSE,RANDOM 157 mg/dL (70-110); POTASSIUM 3.3 mmol/L (3.6-5.0); SODIUM 135 mmol/L (132-148)
[2017-08-14 06:01] LABS: TROPONIN I 0.06 ng/mL
[2017-08-14] MEDS: diltiaZEM IVPB 100mg in NS 100 ML IV PRN ×2 (07:09→22:00)
[2017-08-14] MEDS ORDERED: Levothyroxine 125 MCG TAB PO SCH (07:30)
[2017-08-14] MEDS: Insulin Reg-MEDIUM-Coverage SC SCH ×4 (08:32→23:00)
[2017-08-14] MEDS ORDERED: AMIODARONE IV SCH (09:45)
[2017-08-14] MEDS ORDERED: DEXTROSE 5% IV SCH (09:45)
[2017-08-14] MEDS ORDERED: WATER IV SCH (09:45)
--- NOTE | 2017-08-14 10:47 | CP.PCM.PN ---
<Nicholas Sethi - Last Filed: 08/15/17 16:32> Subjective - Date & Time of Evaluation Date of Evaluation: 08/14/17 Time of Evaluation: 08:44 - Subjective Subjective: Patient seen and examined at bedside. Per nursing no acute events occurred overnight. The patient is still reporting some mid-epigastrium pain and tasting acid in her throat. She also is reporting some palpitations that come and go. The patient denies any lightheadedness, dizziness, nausea, vomiting, changes in vision, syncopal episodes, fevers, chills, or any other complaints. Objective - Vital Signs/Intake and Output Vital Signs (last 24 hours): Temp Pulse Resp BP Pulse Ox 98.3 F 126 H 28 H 115/63 90 L 08/14/17 05:19 08/14/17 10:13 08/14/17 05:19 08/14/17 10:13 08/14/17 05:19 Intake and Output: 08/14/17 08/14/17 06:59 18:59 Intake Total 360 180 Output Total 450 Balance -90 180 - Medications Medications: Current Medications Aspirin (Aspirin Chewable) 81 mg PO DAILY [facility] Last Admin: 08/14/17 10:12 Dose: 81 mg Atorvastatin Calcium (Lipitor) 10 mg PO DIN [facility] Clopidogrel Bisulfate (Plavix) 75 mg PO DAILY [facility] Last Admin: 08/14/17 10:12 Dose: 75 mg Furosemide (Lasix) 20 mg IVP Q12 [facility] Last Admin: 08/14/17 10:13 Dose: 20 mg Heparin Sodium/Sodium Chloride (Heparin 33638 Units/250ml 1/2 Normal Saline) 25 ,000 units in 250 mls @ 10.018 mls/hr IV .Q24H PRN; Protocol; 18 UNITS/KG/HR PRN Reason: ADJUST RATE PER PROTOCOL Last Titration: 08/14/17 07:15 Dose: Infused diltiaZEM IVPB 100mg in NS (Cardizem 100mg In Ns) 100 mls @ 5 mls/hr IV .Q20H PRN; Protocol; 5 MG/HR PRN Reason: TITRATE PER MD ORDER Last Admin: 08/14/17 07:09 Dose: 5 mg/hr, 5 mls/hr Potassium Chloride (Potassium Chloride 20 Meq/100 Ml) 20 meq in 100 mls @ 50 mls/hr IVPB Q2H [facility] Stop: 08/14/17 11:29 Last Admin: 08/14/17 08:16 Dose: 50 mls/hr Insulin Human Regular (Humulin R Med) 0 units SC ACHS [facility] PRN Reason: Protocol Last Admin: 08/14/17 08:32 Dose: 1 units Levothyroxine Sodium (Synthroid) 125 mcg PO ACB [facility] Last Admin: 08/14/17 08:18 Dose: 125 mcg Pantoprazole Sodium (Protonix Inj) 40 mg IVP DAILY [facility] Last Admin: 08/14/17 10:13 Dose: 40 mg Verapamil HCl (Verapamil Inj) 2.5 mg IVP Q6H PRN PRN Reason: For heart rate>130 Verapamil HCl (Calan Tab) 40 mg PO TID [facility] Last Admin: 08/14/17 10:12 Dose: 40 mg - Labs Labs: 08/14/17 05:22 08/14/17 05:22 PT 10.7 SECONDS (9.4-12.5) 08/13/17 17:26 INR 0.98 (0.93-1.08) 08/13/17 17:26 APTT 114.8 Seconds (25.1-36.5) H* 08/14/17 05:22 - Head Exam Head Exam: ATRAUMATIC, NORMAL INSPECTION, NORMOCEPHALIC - Eye Exam Eye Exam: EOMI, Normal appearance, PERRL. absent: Periorbital tenderness Pupil Exam: NORMAL ACCOMODATION, PERRL. absent: Irregular, Unequal - ENT Exam ENT Exam: Mucous Membranes Moist, Normal Exam, Normal Oropharynx - Neck Exam Neck Exam: Normal Inspection. absent: Lymphadenopathy, Thyromegaly - Respiratory Exam Respiratory Exam: Decreased Breath Sounds - Cardiovascular Exam Cardiovascular Exam: Irregular Rhythm - GI/Abdominal Exam GI & Abdominal Exam: Soft, Normal Bowel Sounds. absent: Rigid, Tenderness - Extremities Exam Extremities Exam: Full ROM. absent: Joint Swelling, Pedal Edema, Tenderness - Back Exam Back Exam: NORMAL INSPECTION. absent: CVA tenderness (L), CVA tenderness (R), paraspinal tenderness - Neurological Exam Neurological Exam: Alert, Awake, CN II-XII Intact - Psychiatric Exam Psychiatric exam: Normal Affect, Normal Mood - Skin Skin Exam: Dry, Intact Assessment and Plan - Assessment and Plan (Free Text) Assessment: Patient is a 87 year old female, whose past medical history includes diabetes, hypertension, and hypothyroidism, who presents to the ED via EMS for evaluation and treatment of chest pain and shortness of breath. Plan: Junctional Rhythm with Tachycardia - rate control with cardizem one type dose- limited use due to hypotension, lopressor starting tomorrow with hold parameter- hold if HR is less than 80 bpm , SBP less than 100mmHg - CHADVASC2 - greater than 2, anticoagulation indicated- heparin gtt started - EKG reviewed and appreciated - Junctional Tachycardia-- RVR HR 126, QtC 567 - TSH 27.10. Unknown compliance. - ECHO pending. Will f/u with results. - Troponin :.06x2. Will continue to trend. -Cardiology Consulted. Erik lf/u with rec's Bilateral leg pain -Duplex U/S ordered. Will f/u with results. Chest Pain - rule out ACS - EKG reviewed and appreciated - Junctional Tachycardia-- RVR HR 126, QtC 567 - Troponin :.06 x2. Indeterminate. Will continue to trend. - Continue aspirin and plavix -Triglycerides: 94, Cholesterol: 144, LDL: 63, and HDL: 57. SIRS Criteria Met - Leukocytosis currently at 12.6. Patient afebrile. - blood cultures x 2 ordered. Will f/u with results. - urine culture ordered. Will f/u with results. - procalcitonin pending Acute on Chronic CHF Exacerbation - HR and BP reviewed, trended, and appreciated - CXR appreciated- bilateral pleural effusions noted - Continue strict i and o - Continue daily weight - ECHO pending - Bipap EPAP 6, FiO2 50 Hx of Htn - Continue Lopressor - holding parameters- do not administer if HR is > 100 bpm if BPs trend up Hx of Hyperlipidemia - c/w statin - lipid profile appreciated. Hx of Diabetes - continue ISS medium - Continue fingersticks ACHS - Continue carb consistent Hx of Hypothyroidism - TSH 27.10. Questionable compliance. Will discuss with patient home regimen. - continue synthroid Prophylaxis - DVT ppx- heparin gtt - GI ppx- protonix <Carmen Odom B - Last Filed: 08/15/17 19:18> Objective - Vital Signs/Intake and Output Vital Signs (last 24 hours): Temp Pulse Resp BP Pulse Ox 98.5 F 79 25 H 118/59 L 93 L 08/15/17 16:00 08/15/17 18:00 08/15/17 16:00 08/15/17 17:41 08/15/17 16:00 Intake and Output: 08/15/17 08/16/17 18:59 06:59 Intake Total 150 Balance 150 - Medications Medications: Current Medications Aspirin (Aspirin Chewable) 81 mg PO DAILY [facility] Last Admin: 08/15/17 09:00 Dose: 81 mg Atorvastatin Calcium (Lipitor) 10 mg PO DIN [facility] Last Admin: 08/15/17 17:40 Dose: 10 mg Clopidogrel Bisulfate (Plavix) 75 mg PO DAILY [facility] Last Admin: 08/15/17 08:59 Dose: 75 mg Furosemide (Lasix) 40 mg IVP BID [facility] Last Admin: 08/15/17 17:41 Dose: 40 mg Heparin Sodium/Sodium Chloride (Heparin 31536 Units/250ml 1/2 Normal Saline) 25 ,000 units in 250 mls @ 10.018 mls/hr IV .Q24H PRN; Protocol; 18 UNITS/KG/HR PRN Reason: ADJUST RATE PER PROTOCOL Last Titration: 08/15/17 07:42 Dose: 17 units/kg/hr, 9.462 mls/hr Insulin Detemir (Levemir) 30 unit SC HS [facility] Insulin Human Regular (Humulin R High) 0 units SC ACHS [facility] PRN Reason: Protocol Last Admin: 08/15/17 17:36 Dose: 12 units Levothyroxine Sodium (Synthroid) 150 mcg PO ACB [facility] Pantoprazole Sodium (Protonix Ec Tab) 40 mg PO DAILY [facility] Last Admin: 08/15/17 09:00 Dose: 40 mg Simethicone (Mylicon Liq) 40 mg PO QID [facility] Last Admin: 08/15/17 17:42 Dose: 40 mg Verapamil HCl (Verapamil Inj) 2.5 mg IVP Q6H PRN PRN Reason: For heart rate>130 Verapamil HCl (Calan Tab) 80 mg PO TID [facility] Last Admin: 08/15/17 17:40 Dose: 80 mg - Labs Labs: 08/15/17 05:10 08/15/17 05:10 PT 10.7 SECONDS (9.4-12.5) 08/13/17 17:26 INR 0.98 (0.93-1.08) 08/13/17 17:26 APTT 75.2 Seconds (25.1-36.5) H 08/15/17 15:27 Attending/Attestation - Attestation I have personally seen and examined this patient.: Yes I have fully participated in the care of the patient.: Yes I have reviewed all pertinent clinical information, including history, physical exam and plan: Yes Notes (Text): I have seen and examined the patient at bedside. Agree with the above note with the following additions/ exceptions: Briefly this is 87 year old female with history of IDDM, hypertension, and hypothyroidism, who was admitted for evaluation of dyspnea and palpitations. She was found to have afib and is on cardizem drip, amiodarone drip and was started on lopressor. Echo pending. CXR showed venous congestion and is on lasix. She also has indeterminate troponins and is currently on aspirin, plavix and heparin drip. Continue bipap. Qa Automation Architect and hogshead mat inspector on board. Continue ISS. Upon discharge patient will follow up with Dr Sol. Dr Carmen Odom
[2017-08-14] MEDS ORDERED: POLYETHYLENE GLYCOL 3350 17 GM/Dose PACKET PO ONE (18:05)
--- NOTE | 2017-08-14 18:43 | CON ---
DATE: 08/14/2017 HISTORY OF PRESENT ILLNESS: This is an 87-year-old female with a history of diabetes, hypertension, hypothyroidism, who presented to ED yesterday for 1-day duration of shortness of breath and chest palpitation. Shortness of breath was associated with some chest pain and epigastric pain, which was pressure-like without any radiation to back or any other areas. Shortness of breath was made worse by exertion. No alleviating factors. No triggering events identified. No prior episodes like this before. The patient was found to have SVT and different antiarrhythmics were tried including beta-blockers, amiodarone, and Cardizem drip without being able to break or control it. The patient was started on BiPAP with FiO2 weaned down to 50% from 100%. The patient appears to be a little bit more comfortable with it. The patient also received nitroglycerin sublingually and as a paste, Lasix. No fever, no chills, no sweats, no nausea, no vomiting, no diarrhea, no constipation. PAST MEDICAL HISTORY: Diabetes type 2, hypertension, hypothyroidism. PAST SURGICAL HISTORY: Cholecystectomy, hysterectomy, and thyroidectomy. FAMILY HISTORY: Noncontributory. SOCIAL HISTORY: The patient denies alcohol or illicit drug abuse. No tobacco smoking. MEDICATIONS: Tradjenta, Levemir, Lantus insulin, Norvasc, valsartan, hydrochlorothiazide, Crestor, Lopressor, metformin, Synthroid, isosorbide mononitrate, glimepiride, Plavix, vitamin D, aspirin. REVIEW OF SYSTEMS: Review of 12-organ system other than mentioned in history of present illness is negative. ALLERGIES: IV CONTRAST. PHYSICAL EXAMINATION: VITAL SIGNS: The patient is on BiPAP 10/6 with backup rate 16, FiO2 of 50%. The patient is on heparin drip and Cardizem drip at 5 mg per hour. On that setting, her oxygen saturation is 99%. Heart rate 127, oxygen saturation 99% on 50% FiO2 (FiO2 was weaned down to 40%), respiratory rate 20-24, blood pressure 118/70 with mean atrial pressure 89. ENT: Head and neck atraumatic. LUNGS: Decreased breath sounds, but clear to auscultation bilaterally. HEART: Regular rate and rhythm. S1, S2 normal. ABDOMEN: Soft, nontender, nondistended. MUSCULOSKELETAL: No C/C/E. NEUROLOGICAL: The patient moves all extremities spontaneously. SKIN: Color is moist. PSYCHIATRIC: The patient is alert, awake, not in respiratory or otherwise distress. LABORATORY DATA: ABG showed 7.4//170, on 100% FiO2. WBC 12.6, down from 21.6, hemoglobin 12.4, platelet count 392. Sodium 135, potassium 3.3 (supplemented), chloride 98, BUN 19, creatinine 0.8, glucose 157, AST 35, ALT 25. TSH 27. ProBNP 3860. Troponin 0.06 x2. CURRENT MEDICATIONS: Adenosine 6 mg will be given. Amiodarone drip stopped. Aspirin, Lipitor, Cardizem drip, Plavix, Lasix 20 mg IV q.12, heparin drip, Synthroid, metoprolol, Protonix. IMAGING: Chest x-ray consistent with pulmonary congestion. ASSESSMENT AND PLAN: This is an 87-year-old lady who presented with what appears to be atrial flutter in the setting of congestive heart failure. Last echocardiogram was done 2 years ago and will be repeated today. It appears that the patient has congestive heart failure with cardiogenic pulmonary edema that is responsible for the patient's symptoms. We will proceed with bilevel positive airway pressure application for pre and afterload reduction. Conservative fluid management with gentle diuresis while aggressively supplementing electrolytes. We will give 6 mg of adenosine and if needed 12 mg after that to ascertain atrial flutter rather than sinus tachycardia present. The patient is on therapeutic anticoagulation to prevent stroke. The patient is on Cardizem drip, which we will continue, metoprolol p.o. If the patient does not spontaneously convert to sinus rhythm after adenosine, verapamil will be given as per Cardiology recommendation. We will continue to target euvolemia, euglycemia, normothermia, and oxygen saturation more than 90%. We will continue with gastrointestinal prophylaxis. We will continue with tapering down FiO2 according to conservative oxygen management. Addendum: adenosine was given-->atrial flutter, verapamil started ccm time 40 min Reynold Olmstead MD [facility] # [id number] MTDD
--- NOTE | 2017-08-14 19:32 | US ---
HISTORY: Leg pain and swelling. Evaluate for DVT PHYSICIAN(S): Lars Johnson MD. TECHNIQUE: Duplex sonography and color-flow Doppler with graded compression were used to evaluate the deep venous systems of both lower extremities. FINDINGS: The visualized deep venous systems of both lower extremities are sonographically normal and compressible. Normal wave forms and augmentation are seen. There is no sonographic evidence for deep venous thrombosis in the visualized segments of both lower extremities. IMPRESSION: No sonographic evidence for deep venous thrombosis in the visualized segments of both lower extremities.
--- NOTE | 2017-08-14 20:15 | CARD ---
APPROVED REPORT EXAM: Two-dimensional and M-mode echocardiogram with Doppler and color Doppler. INDICATION Congestive Heart Failure 2D DIMENSIONS Left Atrium (2D)5.2 (1.6-4.0cm)IVSd1.0 (0.7-1.1cm) LVDd3.6 (3.9-5.9cm)PWd1.3 (0.7-1.1cm) LVDs2.6 (2.5-4.0cm)FS (%) 27.7 % LVEF (%)54.6 (>50%) M-Mode DIMENSIONS Aortic Root3.10 (2.2-3.7cm)Aortic Cusp Exc.1.10 (1.5-2.0cm) Aortic Valve AoV Peak Zqknucjk172.0cm/sAoV VTI24.7cmAO Peak GR.13mmHg LVOT Peak Hgfnbmro319.0cm/sLVOT VTI14.00cmAO Mean GR.8mmHg Mitral Valve MV RIT02xnE/A ratio0.0MVA (PHT)2.93cm2 TDI E/Lateral E'0.0E/Medial E'0.0 Pulmonary Valve PV Peak Lampwpnm63.1cm/sPV Peak Grad.3mmHg Tricuspid Valve TR Peak Mkptenfg951kb/sRAP POANSZAY17euPfWV Peak Gr.51mmHg [id number] LEFT VENTRICLE The left ventricle is normal size. There is borderline to mild concentric left ventricular hypertrophy. The left ventricular function is normal.EF-55% ( A fib) There is normal LV segmental wall motion. A fib No left ventricle thrombus noted on this study. There is no ventricular septal defect visualized. There is no left ventricular aneurysm. There is no mass noted in the left ventricle. RIGHT VENTRICLE The right ventricle is mildly dilated. There is normal right ventricular wall thickness. Systolic function is mildly reduced. ATRIA The left atrium is moderately dilated. The right atrium is borderline dilated. The interatrial septum is intact with no evidence for an atrial septal defect. AORTIC VALVE The aortic valve is calcified and displays decreased opening. The aortic valve is moderately sclerotic. No aortic regurgitation is present. Aortic Sclerosis Vs Mild There is no aortic valvular vegetation. MITRAL VALVE The mitral valve is calcified but opens well. Mitral regurgitation is severe. The mitral regurgitant jet is eccentric, posterioorly directed. There is no mitral valve stenosis. There is no evidence of mitral valve prolapse. TRICUSPID VALVE The tricuspid valve leaflets are thickened , but open well. There is moderate tricuspid regurgitation.RVSP-61 mmof hg. There is moderate pulmonary hypertension. There is no tricuspid valve stenosis. There is no tricuspid valve prolapse or vegetation. PULMONIC VALVE The pulmonic valve is not well visualized. GREAT VESSELS The aortic root is normal in size. The ascending aorta is normal in size. The pulmonary artery is normal. The IVC is normal in size and collapses >50% with inspiration. PERICARDIAL EFFUSION There is no pleural effusion. There is no pericardial effusion. <Conclusion> The left ventricle is normal size. There is borderline to mild concentric left ventricular hypertrophy. The left ventricular function is normal.EF-55% ( A fib) Aortic Sclerosis Vs Mild Mitral regurgitation is severe. The mitral regurgitant jet is eccentric, posterioorly directed. There is moderate tricuspid regurgitation.RVSP-61 mmof hg. There is moderate pulmonary hypertension. The IVC is normal in size and collapses >50% with inspiration. There is no pericardial effusion.
[2017-08-15 05:39] LABS: BASO # 0.03 K/mm3 (0.0-2.0); BASO % 0.2 % (0.0-3.0); EOS # 0.1 (0.0-0.7); EOS % 0.6 % (1.5-5.0); GRAN # 10.34 (1.4-6.5); GRAN % 84.2 % (50.0-68.0); HEMATOCRIT 34.6 % (36.0-48.0); LYMPH # 1.1 (1.2-3.4); LYMPH % 9.2 % (22.0-35.0); MEAN CELL VOLUME 91.8 fl (80.0-105.0); MEAN CORPUSCULAR HEMOGLOBIN 31.3 pg (25.0-35.0); MEAN CORPUSCULAR HGB CONC 34.1 g/dl (31.0-37.0); MEAN PLATELET VOLUME 9.4 fl (7.0-11.0); MONO # 0.7 (0.1-0.6); MONO % 5.8 % (1.0-6.0); RED CELL DISTRIBUTION WIDTH 14.9 % (11.5-14.5); WHITE BLOOD COUNT 12.3 10^3/ul (4.5-11.0)
[2017-08-15] MEDS ORDERED: Levothyroxine 200 MCG TAB PO SCH (06:00)
--- NOTE | 2017-08-15 06:47 | CON ---
DATE: 08/14/2017 CONSULT SERVICE: Cardiology. CONSULTING PHYSICIAN: Dr. Amadeo Michele. REASON FOR CONSULTATION: Cardiac evaluation, AFib with rapid ventricular rate, congestive heart failure. BRIEF CLINICAL HISTORY: This is an 87-year-old female with past medical history significant for diabetes, hypertension, hyperlipidemia, coronary artery disease, CVA, ALLERGIC TO CONTRAST DYE. The daughter states that patient was complaining of mild shortness of breath and palpitation. EMT was called. En route to the hospital, the patient's oxygen saturation was noted to be 80% on nonrebreather mask, 40 of Lasix. I have given 2 sublingual nitro, half an inch of paste was given by ambulance en route to ED. The patient is currently on CPAP, feels a lot better. Though, heart rate is rapid rate of 130. PAST MEDICAL HISTORY: Significant for diabetes, hypertension, hyperlipidemia, uborlbto-ez-fauefk aortic stenosis, mitral and tricuspid regurgitation, history of cardiac catheterization on 12/22/2016, that showed LV function preserved, no significant gradient across the aortic valve noted. Cardiac catheterization revealed left main and right-sided dominant system essentially without significant stenosis, calcified coronary. LAD, 50% to 60% stenosis in the mid segment, circumflex of 50% to 60% stenosis in the mid segment, diffuse calcification noted. OM1 has 90% stenosis noted. Ramus intermedius is 90% stenosis in the mid segment. Right coronary artery, 90% stenosis in the mid segment, LV function, ejection fraction 65%, triple vessel disease, moderate disease in LAD, RPDA was diffusely diseased, small caliber vessels not suitable for PCI. Preserved LV function, ejection fraction 65%. No significant gradient across the aortic valve noted. REVIEW OF SYSTEMS: As per HPI. PHYSICAL EXAMINATION: As follows: VITAL SIGNS: Temperature afebrile, heart rate 120, blood pressure 113/65. HEENT: PERRLA. Extraocular muscles intact. NECK: Supple. No carotid bruit or thyromegaly. CHEST: Clear to auscultation. HEART: S1, S2, regular. ABDOMEN: Soft. EXTREMITIES: Clubbing, cyanosis negative. LABORATORY DATA: EKG showed AFib with rapid ventricular rate, rate of 132. Blood workup as follows: WBC 12.6, hemoglobin 12.4, hematocrit 36.2, platelet count 392. Chemistry shows sodium of 135, potassium 3.3, chloride 98, carbon dioxide 26, anion gap 14, BUN 19, creatinine 0.8. BNP 2860. TSH 27.1. Chest x-ray showed consistent with mild CHF. IMPRESSION: Atrial fibrillation with rapid ventricular rate, coronary artery disease, congestive heart failure, diabetes, hypertension, hyperlipidemia, unstable angina, history of cerebrovascular accident, history of ALLERGY TO CONTRAST DYE. By echo, [id number] aortic stenosis by cath, no significant gradient across the aortic valve. Last catheterization was on 12/2014 followed by allergic reaction, questionable history for possible cerebrovascular accident. After that, invasive workup was not done. RECOMMENDATIONS: We will start broad-spectrum antibiotics . Elevated WBC. We will get lipid profile, TSH, hemoglobin A1c. We will start verapamil 40 mg t.i.d., depending on the blood pressure response and give verapamil 2.5 p.r.n. for heart rate more than 130. Continue diuretics as blood pressure is tolerated. We will get echo to assess the LV function. Further recommendation in hospital course, we will follow up with you. Thank you Dr. Porter for providing the opportunity in taking care of your patient, Carl Schmitt. So far no evidence of acute FL. Borderline troponin. We will supplement potassium. Continue heparin for atrial fibrillation as well as possible acute coronary syndrome. We will follow with you. Further recommendations were made after the initial workup and hospital course, we will follow with you. At home medications, the patient was taking Tradjenta, insulin, valsartan, amlodipine, metoprolol, metformin, levothyroxine, glimepiride, clopidogrel, cilostazol, cholecalciferol, aspirin. The patient was at home with 125 mcg, depending upon thyroid, TSH function, we may increase TSH. We will follow up with you. Amadeo Michele MD
--- NOTE | 2017-08-15 07:31 | CP.CCUPN ---
<Lito Gant - Last Filed: 08/15/17 14:11> CCU Subjective - Physician Review Subjective (Free Text): Critical care progress note - Brittnee Alycecelia PGY2 Patient seen and examined at bedside this morning. No acute overnight events or new complaints reported by nursing staff. Patient urine output over the last 12 hours has been 600cc with an additional 150cc being put out this morning, however weight has increased by roughly 1lb since admission. Will continue with latisha diuresis and per cardiology will increase verapamil in hopes of weaning off cardizem. Denies chest pain, palptiations, SOB. Complained of abdominal bloating and constipation. CCU Objective - Vital Signs / Intake & Output Vital Signs (Last 4 hours): Vital Signs Temp Pulse Resp BP Pulse Ox 08/15/17 06:00 129 H 22 131/84 92 L 08/15/17 05:00 128 H 28 H 124/67 91 L 08/15/17 04:00 98.4 F 135 H 43 H 149/79 96 Intake and Output (Last 8hrs): Intake & Output 08/14/17 08/15/17 08/15/17 22:59 06:59 14:59 Intake Total 1181 410 Output Total 475 600 Balance 706 -190 Weight 121 lb 3 oz Intake: IV 461 210 Left Antecubital 260 100 Right Antecubital 101 60 Oral 720 200 Tube Feeding 0 TPN/PPN 0 Blood Product 0 Lipid 0 Albumin 0 Other 0 Output: Urine 475 600 Urethral (Kirkpatrick) 475 600 Stool 0 Urine/Stool Mix 0 Emesis 0 Oral Regurgitation 0 Other 0 Other: # Voids Urethral (Kirkpatrick) 0 # Bowel Movements 0 - Physical Exam Head: Positive for: Atraumatic, Normocephalic Pupils: Positive for: PERRL Extroacular Muscles: Positive for: EOMI Conjunctiva: Positive for: Normal Respiratory/Chest: Positive for: Clear to Auscultation. Negative for: Respiratory Distress, Accessory Muscle Use, Rales, Retracting, Rhonchi Cardiovascular: Positive for: Normal S1, S2, Irregular Rhythm, Tachycardic. Negative for: Murmurs, Rub, Gallop Abdomen: Positive for: Distention, Normal Bowel Sounds. Negative for: Tenderness, Rebound, Guarding Upper Extremity: Positive for: Normal Inspection. Negative for: Cyanosis, Edema Lower Extremity: Positive for: Normal Inspection. Negative for: Edema Neurological: Positive for: CN II-XII Intact Skin: Positive for: Warm, Dry, Normal Color. Negative for: Rashes Psychiatric: Positive for: Alert, Oriented x 3 - Medications Active Medications: Active Medications Generic Name Dose Route Start Last Admin Trade Name Freq PRN Reason Stop Dose Admin Aspirin 81 mg 08/14/17 10:00 08/14/17 10:12 Aspirin Chewable PO 81 mg DAILY CIARA Administration Atorvastatin Calcium 10 mg 08/14/17 17:00 08/14/17 18:04 Lipitor PO 10 mg DIN CIARA Administration Clopidogrel Bisulfate 75 mg 08/14/17 10:00 08/14/17 10:12 Plavix PO 75 mg DAILY [facility]ARA Administration Furosemide 20 mg 08/14/17 10:00 08/14/17 22:08 Lasix IVP 20 mg Q12 [facility] Administration Heparin Sodium/Sodium Chloride 25,000 units in 250 mls @ 10.018 mls/hr 02:16 08/14/17 19:00 Heparin 40962 Units/250ml 1/2 Normal Saline IV 15 units/kg/hr .Q24H PRN 8.348 mls/hr ADJUST RATE PER PROTOCOL Administration Protocol 18 UNITS/KG/HR diltiaZEM IVPB 100mg in NS 100 mls @ 5 mls/hr 08/14/17 06:08 08/15/17 05:00 Cardizem 100mg In Ns IV 10 mg/hr .Q20H PRN 10 mls/hr TITRATE PER MD ORDER Titration Protocol 5 MG/HR Insulin Human Regular 0 units 08/13/17 22:00 08/14/17 23:00 Humulin R Med SC Not Given ACHS [facility] Protocol Levothyroxine Sodium 200 mcg 08/15/17 06:00 08/15/17 06:02 Synthroid PO 200 mcg 0600 [facility]ARA Administration Pantoprazole Sodium 40 mg 08/15/17 10:00 Protonix Ec Tab PO DAILY [facility] Verapamil HCl 2.5 mg 08/14/17 08:15 Verapamil Inj IVP Q6H PRN For heart rate>130 Verapamil HCl 40 mg 08/14/17 10:00 08/14/17 18:03 Calan Tab PO 40 mg TID [facility] Administration - Patient Studies Lab Studies: Microbiology Studies 08/13/17 23:45 Blood Culture - Preliminary Blood NO GROWTH AFTER 24 HOURS 08/13/17 23:45 Blood Culture - Preliminary Blood NO GROWTH AFTER 24 HOURS Lab Studies 08/15/17 08/15/17 08/14/17 Range/Units 05:10 05:10 22:47 WBC 12.3 H (4.5-11.0) 10^3/ul RBC 3.77 (3.5-6.1) 10^6/uL Hgb 11.8 L (12.0-16.0) g/dL Hct 34.6 L (36.0-48.0) % MCV 91.8 (80.0-105.0) fl MCH 31.3 (25.0-35.0) pg MCHC 34.1 (31.0-37.0) g/dl RDW 14.9 H (11.5-14.5) % Plt Count 337 (120.0-450.0) 10^3/uL MPV 9.4 (7.0-11.0) fl Gran % 84.2 H (50.0-68.0) % Lymph % (Auto) 9.2 L (22.0-35.0) % Titus % (Auto) 5.8 (1.0-6.0) % Eos % (Auto) 0.6 L (1.5-5.0) % Baso % (Auto) 0.2 (0.0-3.0) % Gran # 10.34 H (1.4-6.5) Lymph # 1.1 L (1.2-3.4) Titus # 0.7 H (0.1-0.6) Eos # 0.1 (0.0-0.7) Baso # 0.03 (0.0-2.0) K/mm3 APTT 36.4 (25.1-36.5) Seconds POC Glucose (mg/dL) 273 H (65-110) mg/dL Hemoglobin A1c (4.2-6.5) % Troponin I ng/mL Procalcitonin (0.19-0.49) NG/ML TSH 3rd Generation (0.46-4.68) mIU/mL 08/14/17 08/14/17 08/14/17 Range/Units 19:05 17:13 12:20 WBC (4.5-11.0) 10^3/ul RBC (3.5-6.1) 10^6/uL Hgb (12.0-16.0) g/dL Hct (36.0-48.0) % MCV (80.0-105.0) fl MCH (25.0-35.0) pg MCHC (31.0-37.0) g/dl RDW (11.5-14.5) % Plt Count (120.0-450.0) 10^3/uL MPV (7.0-11.0) fl Gran % (50.0-68.0) % Lymph % (Auto) (22.0-35.0) % Titus % (Auto) (1.0-6.0) % Eos % (Auto) (1.5-5.0) % Baso % (Auto) (0.0-3.0) % Gran # (1.4-6.5) Lymph # (1.2-3.4) Titus # (0.1-0.6) Eos # (0.0-0.7) Baso # (0.0-2.0) K/mm3 APTT 57.6 H 52.2 H (25.1-36.5) Seconds POC Glucose (mg/dL) 317 H (65-110) mg/dL Hemoglobin A1c (4.2-6.5) % Troponin I ng/mL Procalcitonin (0.19-0.49) NG/ML TSH 3rd Generation (0.46-4.68) mIU/mL 08/14/17 08/14/17 08/14/17 Range/Units 11:50 11:50 11:36 WBC (4.5-11.0) 10^3/ul RBC (3.5-6.1) 10^6/uL Hgb (12.0-16.0) g/dL Hct (36.0-48.0) % MCV (80.0-105.0) fl MCH (25.0-35.0) pg MCHC (31.0-37.0) g/dl RDW (11.5-14.5) % Plt Count (120.0-450.0) 10^3/uL MPV (7.0-11.0) fl Gran % (50.0-68.0) % Lymph % (Auto) (22.0-35.0) % Titus % (Auto) (1.0-6.0) % Eos % (Auto) (1.5-5.0) % Baso % (Auto) (0.0-3.0) % Gran # (1.4-6.5) Lymph # (1.2-3.4) Titus # (0.1-0.6) Eos # (0.0-0.7) Baso # (0.0-2.0) K/mm3 APTT (25.1-36.5) Seconds POC Glucose (mg/dL) 198 H (65-110) mg/dL Hemoglobin A1c (4.2-6.5) % Troponin I 0.05 ng/mL Procalcitonin (0.19-0.49) NG/ML TSH 3rd Generation 45.00 H (0.46-4.68) mIU/mL 08/14/17 08/14/17 08/13/17 Range/Units 08:26 05:22 23:45 WBC (4.5-11.0) 10^3/ul RBC (3.5-6.1) 10^6/uL Hgb (12.0-16.0) g/dL Hct (36.0-48.0) % MCV (80.0-105.0) fl MCH (25.0-35.0) pg MCHC (31.0-37.0) g/dl RDW (11.5-14.5) % Plt Count (120.0-450.0) 10^3/uL MPV (7.0-11.0) fl Gran % (50.0-68.0) % Lymph % (Auto) (22.0-35.0) % Titus % (Auto) (1.0-6.0) % Eos % (Auto) (1.5-5.0) % Baso % (Auto) (0.0-3.0) % Gran # (1.4-6.5) Lymph # (1.2-3.4) Titus # (0.1-0.6) Eos # (0.0-0.7) Baso # (0.0-2.0) K/mm3 APTT (25.1-36.5) Seconds POC Glucose (mg/dL) 185 H (65-110) mg/dL Hemoglobin A1c 8.3 H (4.2-6.5) % Troponin I ng/mL Procalcitonin 0.29 (0.19-0.49) NG/ML TSH 3rd Generation (0.46-4.68) mIU/mL Laboratory Results - last 24 hr 08/13/17 08/14/17 08/14/17 23:45 05:22 08:26 WBC RBC Hgb Hct MCV MCH MCHC RDW Plt Count MPV Gran % Lymph % (Auto) Titus % (Auto) Eos % (Auto) Baso % (Auto) Gran # Lymph # Titus # Eos # Baso # APTT POC Glucose (mg/dL) 185 H Hemoglobin A1c 8.3 H Troponin I Procalcitonin 0.29 TSH 3rd Generation 08/14/17 08/14/17 08/14/17 11:36 11:50 11:50 WBC RBC Hgb Hct MCV MCH MCHC RDW Plt Count MPV Gran % Lymph % (Auto) Titus % (Auto) Eos % (Auto) Baso % (Auto) Gran # Lymph # Titus # Eos # Baso # APTT POC Glucose (mg/dL) 198 H Hemoglobin A1c Troponin I 0.05 Procalcitonin TSH 3rd Generation 45.00 H 08/14/17 08/14/17 08/14/17 12:20 17:13 19:05 WBC RBC Hgb Hct MCV MCH MCHC RDW Plt Count MPV Gran % Lymph % (Auto) Titus % (Auto) Eos % (Auto) Baso % (Auto) Gran # Lymph # Titus # Eos # Baso # APTT 52.2 H 57.6 H POC Glucose (mg/dL) 317 H Hemoglobin A1c Troponin I Procalcitonin TSH 3rd Generation 08/14/17 08/15/17 08/15/17 22:47 05:10 05:10 WBC 12.3 H RBC 3.77 Hgb 11.8 L Hct 34.6 L MCV 91.8 MCH 31.3 MCHC 34.1 RDW 14.9 H Plt Count 337 MPV 9.4 Gran % 84.2 H Lymph % (Auto) 9.2 L Titus % (Auto) 5.8 Eos % (Auto) 0.6 L Baso % (Auto) 0.2 Gran # 10.34 H Lymph # 1.1 L Titus # 0.7 H Eos # 0.1 Baso # 0.03 APTT 36.4 POC Glucose (mg/dL) 273 H Hemoglobin A1c Troponin I Procalcitonin TSH 3rd Generation Fingerstick Blood Sugar Results: 273 Critical Care Progress Note - Nutrition Nutrition: Nutrition Category Date Time Status Heart Healthy Diet [DIET] Diets 08/13/17 Breakfast Ordered Assessment/Plan - Assessment and Plan (Free Text) Plan: 87yo female with history of diabetes, hypertension, and hypothyroidism admitted to the ICU for atrial flutter in the setting of congestive heart failure Neuro: -Awake, alert, oriented x3 -Maintain normothermia Cardio: -Case discussed with cardiology, Dr. Michele this morning; Will increase verapamil dosage in hope of weaning off cardizem drip -Continue with ASA, plavix, lipitor and increased lasix to 40mg IV q12h -Patient was given adenosine 6mg yesterday to ascertain atrial flutter vs sinus tachycardia; rhythm was consistent with atrial flutter -CHADVASC2 greater than 2, therapeutic anticoagulation with heparin gtt started to prevent stroke -Strict I's and O's and Daily Weight - patient put out 600cc over last 12 hours and an additional 150cc this morning however has gained approximately ~1lb since admission -Troponin indeterminate -HOB > 30' -TSH pending -Echocardiogram reviewed; revealed LVEF 55%, borderline to mild concentric LVH, Aortic sclerosis vs mild , severe MR, moderate TR, RSVP 61mmHg Pulm: -Continue with BiPAP for preload and afterload reduction in setting of cardiogenic pulmonary edema -Monitor and maintain SaO2 > 90% -CXR reviewed; consistent with pulmonary congestion GI: -Protonix for GI prophylaxis Endo: -Monitor and maintain euglycemia with goal blood glucose between 140-180 -continue home synthroid -fingersticks ACHS -Insulin sliding scale -Consistent carb diet Nephro: -Monitor and correct electrolyte abnormalities as indicated Heme: -DVT prophylaxis with heparin ggt -Lower extremity duplex negative ID: -afebrile with leukocytosis however downtrending and no signs/symptoms of infection at this time -Blood cultures have thus far been negative over the last 24hours -Procalcitonin 0.29 Patient case discussed with and plan approved by attending physician, Dr. Olmstead <Reynold Olmstead - Last Filed: 08/15/17 17:27> CCU Objective - Vital Signs / Intake & Output Vital Signs (Last 4 hours): Vital Signs Temp Pulse Resp BP Pulse Ox 08/15/17 16:00 98.4 F 76 25 H 104/45 L 93 L 08/15/17 15:00 81 31 H 135/58 L 91 L 08/15/17 14:00 98 H 122/44 L 95 Intake and Output (Last 8hrs): Intake & Output 08/15/17 08/15/17 08/15/17 06:59 14:59 22:59 Intake Total 410 150 Output Total 600 Balance -190 150 Weight 121 lb 3 oz Intake: IV 210 150 Left Antecubital 100 Right Antecubital 60 Oral 200 Output: Urine 600 Urethral (Kirkpatrick) 600 - Medications Active Medications: Active Medications Generic Name Dose Route Start Last Admin Trade Name Freq PRN Reason Stop Dose Admin Aspirin 81 mg 08/14/17 10:00 08/15/17 09:00 Aspirin Chewable PO 81 mg DAILY [facility] Administration Atorvastatin Calcium 10 mg 08/14/17 17:00 08/14/17 18:04 Lipitor PO 10 mg DIN [facility]ARA Administration Clopidogrel Bisulfate 75 mg 08/14/17 10:00 08/15/17 08:59 Plavix PO 75 mg DAILY [facility] Administration Furosemide 40 mg 08/15/17 18:00 Lasix IVP BID [facility]ARA Heparin Sodium/Sodium Chloride 25,000 units in 250 mls @ 10.018 mls/hr 02:16 08/15/17 07:42 Heparin 15011 Units/250ml 1/2 Normal Saline IV 17 units/kg/hr .Q24H PRN 9.462 mls/hr ADJUST RATE PER PROTOCOL Titration Protocol 18 UNITS/KG/HR Insulin Detemir 30 unit 08/15/17 22:00 Levemir SC HS CIARA Insulin Human Regular 0 units 08/15/17 11:30 08/15/17 11:56 Humulin R High SC 12 units ACHS [facility] Administration Protocol Levothyroxine Sodium 150 mcg 08/16/17 07:30 Synthroid PO ACB [facility]ARA Pantoprazole Sodium 40 mg 08/15/17 10:00 08/15/17 09:00 Protonix Ec Tab PO 40 mg DAILY [facility]ARA Administration Simethicone 40 mg 12/08/17 14:00 08/15/17 13:31 Mylicon Liq PO 40 mg QID [facility] Administration Verapamil HCl 2.5 mg 08/14/17 08:15 Verapamil Inj IVP Q6H PRN For heart rate>130 Verapamil HCl 80 mg 08/15/17 10:00 08/15/17 13:21 Calan Tab PO 80 mg TID [facility] Administration - Patient Studies Lab Studies: Microbiology Studies 08/13/17 23:45 MRSA Culture (Admit) - Final Naris MRSA NOT DETECTED 08/13/17 23:45 Blood Culture - Preliminary Blood NO GROWTH AFTER 24 HOURS 08/13/17 23:45 Blood Culture - Preliminary Blood NO GROWTH AFTER 24 HOURS Lab Studies 08/15/17 08/15/17 08/15/17 Range/Units 16:44 15:27 11:16 WBC (4.5-11.0) 10^3/ul RBC (3.5-6.1) 10^6/uL Hgb (12.0-16.0) g/dL Hct (36.0-48.0) % MCV (80.0-105.0) fl MCH (25.0-35.0) pg MCHC (31.0-37.0) g/dl RDW (11.5-14.5) % Plt Count (120.0-450.0) 10^3/uL MPV (7.0-11.0) fl Gran % (50.0-68.0) % Lymph % (Auto) (22.0-35.0) % Titus % (Auto) (1.0-6.0) % Eos % (Auto) (1.5-5.0) % Baso % (Auto) (0.0-3.0) % Gran # (1.4-6.5) Lymph # (1.2-3.4) Titus # (0.1-0.6) Eos # (0.0-0.7) Baso # (0.0-2.0) K/mm3 APTT 75.2 H (25.1-36.5) Seconds Sodium (132-148) mmol/L Potassium (3.6-5.0) mmol/L Chloride (98-107) mmol/L Carbon Dioxide (21-33) mmol/L Anion Gap (10-20) BUN (7-21) mg/dL Creatinine (0.7-1.2) mg/dl Est GFR ( Amer) Est GFR (Non-Af Amer) POC Glucose (mg/dL) 349 H 398 H (65-110) mg/dL Random Glucose (70-110) mg/dL Calcium (8.4-10.5) mg/dL Phosphorus (2.5-4.5) mg/dL Magnesium (1.7-2.2) mg/dL Total Bilirubin (0.2-1.3) mg/dL AST (14-36) U/L ALT (7-56) U/L Alkaline Phosphatase (38-126) U/L Total Protein (5.8-8.3) g/dL Albumin (3.0-4.8) g/dL Globulin gm/dL Albumin/Globulin Ratio (1.1-1.8) Procalcitonin (0.19-0.49) NG/ML 08/15/17 08/15/17 08/15/17 Range/Units 07:49 05:10 05:10 WBC (4.5-11.0) 10^3/ul RBC (3.5-6.1) 10^6/uL Hgb (12.0-16.0) g/dL Hct (36.0-48.0) % MCV (80.0-105.0) fl MCH (25.0-35.0) pg MCHC (31.0-37.0) g/dl RDW (11.5-14.5) % Plt Count (120.0-450.0) 10^3/uL MPV (7.0-11.0) fl Gran % (50.0-68.0) % Lymph % (Auto) (22.0-35.0) % Titus % (Auto) (1.0-6.0) % Eos % (Auto) (1.5-5.0) % Baso % (Auto) (0.0-3.0) % Gran # (1.4-6.5) Lymph # (1.2-3.4) Titus # (0.1-0.6) Eos # (0.0-0.7) Baso # (0.0-2.0) K/mm3 APTT 36.4 (25.1-36.5) Seconds Sodium (132-148) mmol/L Potassium (3.6-5.0) mmol/L Chloride (98-107) mmol/L Carbon Dioxide (21-33) mmol/L Anion Gap (10-20) BUN (7-21) mg/dL Creatinine (0.7-1.2) mg/dl Est GFR ( Amer) Est GFR (Non-Af Amer) POC Glucose (mg/dL) 201 H (65-110) mg/dL Random Glucose (70-110) mg/dL Calcium (8.4-10.5) mg/dL Phosphorus 2.8 (2.5-4.5) mg/dL Magnesium 1.9 (1.7-2.2) mg/dL Total Bilirubin (0.2-1.3) mg/dL AST (14-36) U/L ALT (7-56) U/L Alkaline Phosphatase (38-126) U/L Total Protein (5.8-8.3) g/dL Albumin (3.0-4.8) g/dL Globulin gm/dL Albumin/Globulin Ratio (1.1-1.8) Procalcitonin (0.19-0.49) NG/ML 08/15/17 08/15/17 08/14/17 Range/Units 05:10 05:10 22:47 WBC 12.3 H (4.5-11.0) 10^3/ul RBC 3.77 (3.5-6.1) 10^6/uL Hgb 11.8 L (12.0-16.0) g/dL Hct 34.6 L (36.0-48.0) % MCV 91.8 (80.0-105.0) fl MCH 31.3 (25.0-35.0) pg MCHC 34.1 (31.0-37.0) g/dl RDW 14.9 H (11.5-14.5) % Plt Count 337 (120.0-450.0) 10^3/uL MPV 9.4 (7.0-11.0) fl Gran % 84.2 H (50.0-68.0) % Lymph % (Auto) 9.2 L (22.0-35.0) % Titus % (Auto) 5.8 (1.0-6.0) % Eos % (Auto) 0.6 L (1.5-5.0) % Baso % (Auto) 0.2 (0.0-3.0) % Gran # 10.34 H (1.4-6.5) Lymph # 1.1 L (1.2-3.4) Titus # 0.7 H (0.1-0.6) Eos # 0.1 (0.0-0.7) Baso # 0.03 (0.0-2.0) K/mm3 APTT (25.1-36.5) Seconds Sodium 131 L (132-148) mmol/L Potassium 4.0 (3.6-5.0) mmol/L Chloride 97 L (98-107) mmol/L Carbon Dioxide 23 (21-33) mmol/L Anion Gap 15 (10-20) BUN 23 H (7-21) mg/dL Creatinine 0.9 (0.7-1.2) mg/dl Est GFR ( Amer) > 60 Est GFR (Non-Af Amer) 59 POC Glucose (mg/dL) 273 H (65-110) mg/dL Random Glucose 295 H (70-110) mg/dL Calcium 8.8 (8.4-10.5) mg/dL Phosphorus (2.5-4.5) mg/dL Magnesium (1.7-2.2) mg/dL Total Bilirubin 0.9 (0.2-1.3) mg/dL AST 23 (14-36) U/L ALT 23 (7-56) U/L Alkaline Phosphatase 82 (38-126) U/L Total Protein 7.7 (5.8-8.3) g/dL Albumin 3.9 (3.0-4.8) g/dL Globulin 3.8 gm/dL Albumin/Globulin Ratio 1.0 L (1.1-1.8) Procalcitonin (0.19-0.49) NG/ML 08/14/17 08/13/17 Range/Units 19:05 23:45 WBC (4.5-11.0) 10^3/ul RBC (3.5-6.1) 10^6/uL Hgb (12.0-16.0) g/dL Hct (36.0-48.0) % MCV (80.0-105.0) fl MCH (25.0-35.0) pg MCHC (31.0-37.0) g/dl RDW (11.5-14.5) % Plt Count (120.0-450.0) 10^3/uL MPV (7.0-11.0) fl Gran % (50.0-68.0) % Lymph % (Auto) (22.0-35.0) % Titus % (Auto) (1.0-6.0) % Eos % (Auto) (1.5-5.0) % Baso % (Auto) (0.0-3.0) % Gran # (1.4-6.5) Lymph # (1.2-3.4) Titus # (0.1-0.6) Eos # (0.0-0.7) Baso # (0.0-2.0) K/mm3 APTT 57.6 H (25.1-36.5) Seconds Sodium (132-148) mmol/L Potassium (3.6-5.0) mmol/L Chloride (98-107) mmol/L Carbon Dioxide (21-33) mmol/L Anion Gap (10-20) BUN (7-21) mg/dL Creatinine (0.7-1.2) mg/dl Est GFR ( Amer) Est GFR (Non-Af Amer) POC Glucose (mg/dL) (65-110) mg/dL Random Glucose (70-110) mg/dL Calcium (8.4-10.5) mg/dL Phosphorus (2.5-4.5) mg/dL Magnesium (1.7-2.2) mg/dL Total Bilirubin (0.2-1.3) mg/dL AST (14-36) U/L ALT (7-56) U/L Alkaline Phosphatase (38-126) U/L Total Protein (5.8-8.3) g/dL Albumin (3.0-4.8) g/dL Globulin gm/dL Albumin/Globulin Ratio (1.1-1.8) Procalcitonin 0.29 (0.19-0.49) NG/ML Laboratory Results - last 24 hr 08/13/17 08/14/17 08/14/17 23:45 19:05 22:47 WBC RBC Hgb Hct MCV MCH MCHC RDW Plt Count MPV Gran % Lymph % (Auto) Titus % (Auto) Eos % (Auto) Baso % (Auto) Gran # Lymph # Titus # Eos # Baso # APTT 57.6 H Sodium Potassium Chloride Carbon Dioxide Anion Gap BUN Creatinine Est GFR ( Amer) Est GFR (Non-Af Amer) POC Glucose (mg/dL) 273 H Random Glucose Calcium Phosphorus Magnesium Total Bilirubin AST ALT Alkaline Phosphatase Total Protein Albumin Globulin Albumin/Globulin Ratio Procalcitonin 0.29 08/15/17 08/15/17 08/15/17 05:10 05:10 05:10 WBC 12.3 H RBC 3.77 Hgb 11.8 L Hct 34.6 L MCV 91.8 MCH 31.3 MCHC 34.1 RDW 14.9 H Plt Count 337 MPV 9.4 Gran % 84.2 H Lymph % (Auto) 9.2 L Titus % (Auto) 5.8 Eos % (Auto) 0.6 L Baso % (Auto) 0.2 Gran # 10.34 H Lymph # 1.1 L Titus # 0.7 H Eos # 0.1 Baso # 0.03 APTT 36.4 Sodium 131 L Potassium 4.0 Chloride 97 L Carbon Dioxide 23 Anion Gap 15 BUN 23 H Creatinine 0.9 Est GFR ( Amer) > 60 Est GFR (Non-Af Amer) 59 POC Glucose (mg/dL) Random Glucose 295 H Calcium 8.8 Phosphorus Magnesium Total Bilirubin 0.9 AST 23 ALT 23 Alkaline Phosphatase 82 Total Protein 7.7 Albumin 3.9 Globulin 3.8 Albumin/Globulin Ratio 1.0 L Procalcitonin 08/15/17 08/15/17 08/15/17 05:10 07:49 11:16 WBC RBC Hgb Hct MCV MCH MCHC RDW Plt Count MPV Gran % Lymph % (Auto) Titus % (Auto) Eos % (Auto) Baso % (Auto) Gran # Lymph # Titus # Eos # Baso # APTT Sodium Potassium Chloride Carbon Dioxide Anion Gap BUN Creatinine Est GFR ( Amer) Est GFR (Non-Af Amer) POC Glucose (mg/dL) 201 H 398 H Random Glucose Calcium Phosphorus 2.8 Magnesium 1.9 Total Bilirubin AST ALT Alkaline Phosphatase Total Protein Albumin Globulin Albumin/Globulin Ratio Procalcitonin 08/15/17 08/15/17 15:27 16:44 WBC RBC Hgb Hct MCV MCH MCHC RDW Plt Count MPV Gran % Lymph % (Auto) Titus % (Auto) Eos % (Auto) Baso % (Auto) Gran # Lymph # Titus # Eos # Baso # APTT 75.2 H Sodium Potassium Chloride Carbon Dioxide Anion Gap BUN Creatinine Est GFR ( Amer) Est GFR (Non-Af Amer) POC Glucose (mg/dL) 349 H Random Glucose Calcium Phosphorus Magnesium Total Bilirubin AST ALT Alkaline Phosphatase Total Protein Albumin Globulin Albumin/Globulin Ratio Procalcitonin EKG/Cardiology Studies: Cardiology / EKG Studies 08/15/17 14:24 EKG [ELECTROCARDIOGRAM] Stat Comment: Reason For Exam: hx of CHF, aflutter 08/15/17 16:14 EKG [ELECTROCARDIOGRAM] Stat Comment: Reason For Exam: chf, aflutter Critical Care Progress Note - Nutrition Nutrition: Nutrition Category Date Time Status Heart Healthy Diet [DIET] Diets 08/13/17 Breakfast Ordered Attending/Attestation - Attestation I have personally seen and examined this patient.: Yes I have fully participated in the care of the patient.: Yes I have reviewed all pertinent clinical information: Yes Notes (Text): 08/15/17 17:23 87 yo with CHF exacerbation triggered by aflutter with RVR, now converted to normal sinus rhythm and off of cardizem drip. Still substantial cardiogenic pulmonary edema with hypoxemic respiratory failure--> on intermittent BPAP alternating with high flow for patient comfort (patient tolerates both very well ). We are aggressively diuresing her and increased her lasix up to 40 iv q 12hrs. will continue weaning fi02 as tolerated. TAC with heparin, ccm time 40 min
[2017-08-15] MEDS: Insulin Reg-MEDIUM-Coverage SC SCH (08:04)
[2017-08-15] MEDS ORDERED: Digoxin 500 mcg/2ml (0.5 mg/2ml) Inj IVP ONE ×2 (08:13→13:00)
[2017-08-15] MEDS: Pantoprazole 40 mg EC Tab PO SCH (09:00)
[2017-08-15 09:09] LABS: ALKALINE PHOSPHATASE 82 U/L (38-126); ALT/SGPT 23 U/L (7-56); AST/SGOT 23 U/L (14-36); BILIRUBIN,TOTAL 0.9 mg/dL (0.2-1.3); BLOOD UREA NITROGEN 23 mg/dL (7-21); CALCIUM 8.8 mg/dL (8.4-10.5); CARBON DIOXIDE 23 mmol/L (21-33); CHLORIDE 97 mmol/L (98-107); GFR AFRICAN-AMERICAN > 60; GLUCOSE,RANDOM 295 mg/dL (70-110); SODIUM 131 mmol/L (132-148); TOTAL PROTEIN 7.7 g/dL (5.8-8.3)
--- NOTE | 2017-08-15 09:15 | RAD ---
HISTORY: CHF COMPARISON: 08/13/2017 FINDINGS: LUNGS: There is pulmonary edema which has increased. PLEURA: No significant pleural effusion identified, no pneumothorax apparent. CARDIOVASCULAR: Normal. OSSEOUS STRUCTURES: No significant abnormalities. VISUALIZED UPPER ABDOMEN: Normal. OTHER FINDINGS: None. IMPRESSION: Increasing CHF
[2017-08-15 09:41] LABS: MAGNESIUM 1.9 mg/dL (1.7-2.2); PHOSPHOROUS 2.8 mg/dL (2.5-4.5)
--- NOTE | 2017-08-15 10:29 | PN ---
DATE: REASON FOR CONSULTATION AND FOLLOWUP: Cardiac evaluation, AFib with rapid ventricular rate, congestive heart failure. SUBJECTIVE: The patient denies any chest pain, but still AFib with rapid rate 130 on Cardizem drip. PHYSICAL EXAMINATION: VITAL SIGNS: As follows; temperature afebrile, heart rate 120, and blood pressure 131/84. HEENT: PERRLA. Extraocular muscles intact. NECK: Supple. No carotid bruits or thyromegaly. CHEST: Clear to auscultation. HEART: S1 and S2 regular. ABDOMEN: Soft. EXTREMITIES: Clubbing and cyanosis negative. LABORATORY DATA: Blood workup as follows; WBC 12.3, hemoglobin 11.8, hematocrit 34.6, and platelet count 337. Chemistry shows sodium 135, potassium 3.3, chloride 98, and bicarbonate 26 as of yesterday. Today, chemistry is pending. IMPRESSION: An 87-year-old female with past medical history of coronary artery disease, allergic to contrast, history of cerebrovascular accident, and history of paroxysmal atrial fibrillation, admitted with atrial fibrillation with rapid ventricular rate. Last echo showed preserved ejection fraction of 65%. The patient had repeat echo done yesterday that showed ejection fraction 55%, there was mild aortic stenosis, severe mitral regurgitation, eccentrically posteriorly directed, moderate tricuspid regurgitation with RV systolic pressure of . RECOMMENDATIONS: We will control the heart rate. I will give dose of digoxin and continue verapamil, increase verapamil p.o. and wean off Cardizem as tolerated. We will follow with you. Continue anticoagulation. I will give two doses of digoxin, one to start now and one at 1:00 p.m. and we will wean off the Cardizem one hour after p.o. dose of verapamil. Thank you Dr. Porter for providing us the opportunity in taking care of the patient, Keshia Henry. Amadeo Michele MD
--- NOTE | 2017-08-15 11:37 | CP.PCM.PN ---
<NavdeepCielon - Last Filed: 08/15/17 16:33> Subjective - Date & Time of Evaluation Date of Evaluation: 08/15/17 Time of Evaluation: 08:36 - Subjective Subjective: Patient seen and examined at bedside. Per nursing no acute events occurred overnight. The patient does report some palpitations and acid reflux that comes and gos during the day. She denies any chest pain, shortness of breath, nausea, vomiting, lightheadedness, dizziness, fevers, chills, abdominal or any other complaints. Objective - Vital Signs/Intake and Output Vital Signs (last 24 hours): Temp Pulse Resp BP Pulse Ox 98.4 F 128 H 22 138/73 92 L 08/15/17 04:00 08/15/17 08:59 08/15/17 06:00 08/15/17 09:00 08/15/17 06:00 Intake and Output: 08/15/17 08/15/17 06:59 18:59 Intake Total 510 100 Output Total 600 Balance -90 100 - Medications Medications: Current Medications Aspirin (Aspirin Chewable) 81 mg PO DAILY [facility] Last Admin: 08/15/17 09:00 Dose: 81 mg Atorvastatin Calcium (Lipitor) 10 mg PO DIN [facility] Last Admin: 08/14/17 18:04 Dose: 10 mg Clopidogrel Bisulfate (Plavix) 75 mg PO DAILY [facility] Last Admin: 08/15/17 08:59 Dose: 75 mg Digoxin (Lanoxin) 0.25 mg IVP ONCE ONE Stop: 08/15/17 13:01 Furosemide (Lasix) 20 mg IVP Q12 [facility] Last Admin: 08/15/17 09:00 Dose: 20 mg Heparin Sodium/Sodium Chloride (Heparin 90324 Units/250ml 1/2 Normal Saline) 25 ,000 units in 250 mls @ 10.018 mls/hr IV .Q24H PRN; Protocol; 18 UNITS/KG/HR PRN Reason: ADJUST RATE PER PROTOCOL Last Titration: 08/15/17 07:42 Dose: 17 units/kg/hr, 9.462 mls/hr Insulin Human Regular (Humulin R Med) 0 units SC ACHS [facility] PRN Reason: Protocol Last Admin: 08/15/17 08:04 Dose: 3 units Levothyroxine Sodium (Synthroid) 200 mcg PO 0600 [facility] Last Admin: 08/15/17 06:02 Dose: 200 mcg Pantoprazole Sodium (Protonix Ec Tab) 40 mg PO DAILY [facility] Last Admin: 08/15/17 09:00 Dose: 40 mg Verapamil HCl (Verapamil Inj) 2.5 mg IVP Q6H PRN PRN Reason: For heart rate>130 Verapamil HCl (Calan Tab) 80 mg PO TID [facility] Last Admin: 08/15/17 08:59 Dose: 80 mg - Labs Labs: 08/15/17 05:10 08/15/17 05:10 PT 10.7 SECONDS (9.4-12.5) 08/13/17 17:26 INR 0.98 (0.93-1.08) 08/13/17 17:26 APTT 36.4 Seconds (25.1-36.5) 08/15/17 05:10 - Head Exam Head Exam: ATRAUMATIC, NORMAL INSPECTION, NORMOCEPHALIC - Eye Exam Eye Exam: EOMI, Normal appearance, PERRL. absent: Periorbital tenderness Pupil Exam: NORMAL ACCOMODATION, PERRL. absent: Irregular, Unequal - ENT Exam ENT Exam: Mucous Membranes Moist, Normal Oropharynx - Respiratory Exam Respiratory Exam: Decreased Breath Sounds, NORMAL BREATHING PATTERN. absent: Chest Wall Tenderness, Prolonged Expiratory Phase, Rhonchi, Wheezes, Respiratory Distress - Cardiovascular Exam Cardiovascular Exam: REGULAR RHYTHM, +S1, +S2 - GI/Abdominal Exam GI & Abdominal Exam: Soft, Normal Bowel Sounds. absent: Rigid, Hyperactive Bowel Sounds - Extremities Exam Extremities Exam: Full ROM, Tenderness - Back Exam Back Exam: NORMAL INSPECTION. absent: CVA tenderness (L), CVA tenderness (R), paraspinal tenderness - Neurological Exam Neurological Exam: Alert, Awake, CN II-XII Intact - Psychiatric Exam Psychiatric exam: Normal Affect, Normal Mood - Skin Skin Exam: Dry, Intact Assessment and Plan - Assessment and Plan (Free Text) Assessment: Patient is a 87 year old female, whose past medical history includes diabetes, hypertension, and hypothyroidism, who presents to the ED via EMS for evaluation and treatment of chest pain and shortness of breath. Plan: Neurology -No focal deficits appreciated. -No further Intervention at this time required. Cardiology Junctional Rhythm with Tachycardia - rate control with cardizem one type dose- limited use due to hypotension, lopressor starting tomorrow with hold parameter- hold if HR is less than 80 bpm , SBP less than 100mmHg - CHADVASC2 - greater than 2, anticoagulation indicated- heparin gtt started - EKG reviewed and appreciated - Junctional Tachycardia-- RVR HR 126, QtC 567 - ECHO showed EF of 55%, Aortic sclerosis, borderline concentric LVH, M.R. severe, Moderate T.R. and Moderate Pulmonary hypertension -Cardiology Consulted. Rec's appreciated. Acute on Chronic CHF Exacerbation - HR and BP reviewed, trended, and appreciated - CXR appreciated- bilateral pleural effusions noted - Continue strict i and o - Continue daily weight - ECHO pending - Bipap EPAP 10, FiO2 50 Hx of Htn - Continue Lopressor - holding parameters- do not administer if HR is > 100 bpm if BPs trend up Hx of Hyperlipidemia - c/w statin - lipid profile appreciated. Bilateral leg pain -Duplex U/S ordered. Will f/u with results. Chest Pain - rule out ACS - EKG reviewed and appreciated - Junctional Tachycardia-- RVR HR 126, QtC 567 - Troponin :.06 x3. - Continue aspirin and plavix -Triglycerides: 94, Cholesterol: 144, LDL: 63, and HDL: 57. Infectious Disease SIRS Criteria Met - Leukocytosis currently at 12.3. Patient afebrile. - blood cultures(-)x 24 hours. Will f/u with results. - urine culture ordered. Will f/u with results. - procalcitonin .29 Endocrinology Hx of Diabetes - continue ISS medium. Levemir 10 Units Q12 started today. - Continue to monitor with fingersticks ACHS - Continue carb consistent Hx of Hypothyroidism - TSH 27.10. Will continue to re-enforce compliance with the patient.. - continue synthroid Prophylaxis - DVT ppx- heparin gtt - GI ppx- protonix <Carmen Odom - Last Filed: 08/15/17 19:22> Objective - Vital Signs/Intake and Output Vital Signs (last 24 hours): Temp Pulse Resp BP Pulse Ox 98.5 F 79 25 H 118/59 L 93 L 08/15/17 16:00 08/15/17 18:00 08/15/17 16:00 08/15/17 17:41 08/15/17 16:00 Intake and Output: 08/15/17 08/16/17 18:59 06:59 Intake Total 1228 Output Total 1100 Balance 128 - Medications Medications: Current Medications Aspirin (Aspirin Chewable) 81 mg PO DAILY [facility] Last Admin: 08/15/17 09:00 Dose: 81 mg Atorvastatin Calcium (Lipitor) 10 mg PO DIN [facility] Last Admin: 08/15/17 17:40 Dose: 10 mg Clopidogrel Bisulfate (Plavix) 75 mg PO DAILY [facility] Last Admin: 08/15/17 08:59 Dose: 75 mg Furosemide (Lasix) 40 mg IVP BID [facility] Last Admin: 08/15/17 17:41 Dose: 40 mg Heparin Sodium/Sodium Chloride (Heparin 74666 Units/250ml 1/2 Normal Saline) 25 ,000 units in 250 mls @ 10.018 mls/hr IV .Q24H PRN; Protocol; 18 UNITS/KG/HR PRN Reason: ADJUST RATE PER PROTOCOL Last Titration: 08/15/17 07:42 Dose: 17 units/kg/hr, 9.462 mls/hr Insulin Detemir (Levemir) 30 unit SC HS [facility] Insulin Human Regular (Humulin R High) 0 units SC ACHS [facility] PRN Reason: Protocol Last Admin: 08/15/17 17:36 Dose: 12 units Levothyroxine Sodium (Synthroid) 150 mcg PO ACB [facility] Pantoprazole Sodium (Protonix Ec Tab) 40 mg PO DAILY [facility] Last Admin: 08/15/17 09:00 Dose: 40 mg Simethicone (Mylicon Liq) 40 mg PO QID [facility] Last Admin: 08/15/17 17:42 Dose: 40 mg Verapamil HCl (Verapamil Inj) 2.5 mg IVP Q6H PRN PRN Reason: For heart rate>130 Verapamil HCl (Calan Tab) 80 mg PO TID [facility] Last Admin: 08/15/17 17:40 Dose: 80 mg - Labs Labs: 08/15/17 05:10 08/15/17 05:10 PT 10.7 SECONDS (9.4-12.5) 08/13/17 17:26 INR 0.98 (0.93-1.08) 08/13/17 17:26 APTT 75.2 Seconds (25.1-36.5) H 08/15/17 15:27 Attending/Attestation - Attestation I have personally seen and examined this patient.: Yes I have fully participated in the care of the patient.: Yes I have reviewed all pertinent clinical information, including history, physical exam and plan: Yes Notes (Text): I have seen and examined the patient at bedside. Agree with the above note with the following additions/ exceptions: Briefly this is 87 year old female with history of IDDM, hypertension, and hypothyroidism, who was admitted for evaluation of dyspnea and palpitations. She was found to have afib and is on verapamil. Echo revealed EF of 55%, Aortic sclerosis, borderline concentric LVH , M.R. severe, Moderate T.R. and Moderate Pulmonary hypertension. CXR showed venous congestion and is on lasix. She also has indeterminate troponins and is currently on aspirin, plavix and heparin drip. Continue HFNC. Auto Transmission Specialist and analytical engineer on board. Continue ISS. Discussed in detail with patients daughter at bedside. TSH is elevated. Continue synthroid. Upon discharge patient will follow up with Dr Sol. Dr Carmen Odom
[2017-08-15] MEDS: Insulin Reg-HIGH-Coverage SC SCH ×3 (11:56→21:30)
[2017-08-15] MEDS ORDERED: POLYETHYLENE GLYCOL 3350 17 GM/Dose PACKET PO ONE (13:04)
[2017-08-15 13:23] VITALS: PULSE 103
[2017-08-15] MEDS: Simethicone 40 mg/0.6 ml Liquid (30 ml) PO SCH ×3 (13:31→22:00)
--- NOTE | 2017-08-15 18:25 | CARD ---
APPROVED REPORT EKG Measurement Heart [id number] <Conclusion> Normal sinus rhythm Nonspecific intraventricular block Nonspecific T wave abnormality Abnormal ECG
[2017-08-15] MEDS: Insulin Detemir 100 units/ml Vial (Levemir) SC SCH (21:30)
[2017-08-15] MEDS: Heparin25000 units/250ml 1/2NS 25,000 UNITS/250 ML BAG IV PRN (21:31)
[2017-08-15] MEDS ORDERED: Insulin Detemir 100 units/ml Vial (Levemir) SC SCH (22:00)
[2017-08-16 06:04] LABS: BASO # 0.03 K/mm3 (0.0-2.0); BASO % 0.2 % (0.0-3.0); EOS # 0.1 (0.0-0.7); EOS % 0.9 % (1.5-5.0); GRAN # 9.26 (1.4-6.5); GRAN % 75.2 % (50.0-68.0); HEMATOCRIT 32.9 % (36.0-48.0); LYMPH % 16.4 % (22.0-35.0); MEAN CELL VOLUME 90.6 fl (80.0-105.0); MEAN CORPUSCULAR HEMOGLOBIN 30.6 pg (25.0-35.0); MEAN CORPUSCULAR HGB CONC 33.7 g/dl (31.0-37.0); MEAN PLATELET VOLUME 9.5 fl (7.0-11.0); MONO # 0.9 (0.1-0.6); MONO % 7.3 % (1.0-6.0); RED CELL DISTRIBUTION WIDTH 14.5 % (11.5-14.5); WHITE BLOOD COUNT 12.3 10^3/ul (4.5-11.0)
[2017-08-16] MEDS ORDERED: Levothyroxine 150 MCG TAB PO SCH (07:30)
[2017-08-16] MEDS: Insulin Lispro (humaLOG) LOW Coverage SC SCH ×3 (07:33→16:35)
[2017-08-16] MEDS: Insulin Lispro 1 UNITS/0.01 ML SC SCH ×3 (07:33→16:42)
[2017-08-16] MEDS: Simethicone 40 mg/0.6 ml Liquid (30 ml) PO SCH ×4 (09:05→21:47)
[2017-08-16] MEDS: Pantoprazole 40 mg EC Tab PO SCH (09:05)
[2017-08-16 09:15] LABS: ALKALINE PHOSPHATASE 94 U/L (38-126); ALT/SGPT 19 U/L (7-56); AST/SGOT 28 U/L (14-36); BLOOD UREA NITROGEN 20 mg/dL (7-21); CALCIUM 9.5 mg/dL (8.4-10.5); CARBON DIOXIDE 26 mmol/L (21-33); CHLORIDE 97 mmol/L (98-107); GFR AFRICAN-AMERICAN > 60; GLUCOSE,RANDOM 197 mg/dL (70-110); SODIUM 133 mmol/L (132-148); TOTAL PROTEIN 8.6 g/dL (5.8-8.3)
[2017-08-16 09:16] LABS: POTASSIUM 3.6 mmol/L (3.6-5.0)
--- NOTE | 2017-08-16 09:46 | RAD ---
HISTORY: CHF/aflutter COMPARISON: No prior. FINDINGS: LUNGS: Mild pulmonary venous congestive changes with what probably represent layering bilateral effusions. PLEURA: No significant pleural effusion identified, no pneumothorax apparent. CARDIOVASCULAR: Normal. OSSEOUS STRUCTURES: No significant abnormalities. VISUALIZED UPPER ABDOMEN: Normal. OTHER FINDINGS: None. IMPRESSION: Pulmonary vascular congestive changes with layering bilateral effusions.
[2017-08-16] MEDS ORDERED: Enoxaparin 30 mg Syringe SC SCH (10:00)
--- NOTE | 2017-08-16 10:46 | CP.PCM.PN ---
Subjective - Date & Time of Evaluation Date of Evaluation: 08/16/17 Time of Evaluation: 10:40 - Subjective Subjective: Pt seen and examined, reports to be feeling better. Doing well on high flow, can be titrated off high flow. Denies fever, chills, cough, chest pain, SOB. Objective - Vital Signs/Intake and Output Vital Signs (last 24 hours): Temp Pulse Resp BP Pulse Ox 98.8 F 76 20 126/56 L 93 L 08/16/17 08:00 08/16/17 10:14 08/16/17 04:00 08/16/17 10:14 08/16/17 04:00 Intake and Output: 08/16/17 08/16/17 06:59 18:59 Intake Total 500 Output Total 1600 Balance -1100 - Medications Medications: Current Medications Aspirin (Aspirin Chewable) 81 mg PO DAILY [facility] Last Admin: 08/16/17 09:04 Dose: 81 mg Atorvastatin Calcium (Lipitor) 10 mg PO DIN [facility] Last Admin: 08/15/17 17:40 Dose: 10 mg Clopidogrel Bisulfate (Plavix) 75 mg PO DAILY [facility] Last Admin: 08/16/17 09:05 Dose: 75 mg Enoxaparin Sodium (Lovenox) 30 mg SC DAILY [facility] PRN Reason: Protocol Last Admin: 08/16/17 10:15 Dose: 30 mg Furosemide (Lasix) 40 mg IVP BID [facility] Stop: 08/16/17 23:59 Last Admin: 08/16/17 09:04 Dose: 40 mg Furosemide (Lasix) 40 mg IV DAILY [facility] Insulin Detemir (Levemir) 30 unit SC HS [facility] Last Admin: 08/15/17 21:30 Dose: 30 unit Insulin Human Lispro (Humalog Low) 0 units SC ACHS [facility] PRN Reason: Protocol Last Admin: 08/16/17 07:33 Dose: Not Given Insulin Human Lispro (Humalog) 6 units SC AC [facility] Last Admin: 08/16/17 07:33 Dose: 6 units Levothyroxine Sodium (Synthroid) 150 mcg PO ACB [facility] Last Admin: 08/16/17 07:48 Dose: 150 mcg Lisinopril (Zestril) 2.5 mg PO DAILY [facility] Last Admin: 08/16/17 10:14 Dose: 2.5 mg Metoprolol Tartrate (Lopressor) 25 mg PO BID [facility] Last Admin: 08/16/17 10:14 Dose: 25 mg Pantoprazole Sodium (Protonix Ec Tab) 40 mg PO DAILY [facility] Last Admin: 08/16/17 09:05 Dose: 40 mg Simethicone (Mylicon Liq) 40 mg PO QID [facility] Last Admin: 08/16/17 09:05 Dose: 40 mg Verapamil HCl (Verapamil Inj) 2.5 mg IVP Q6H PRN PRN Reason: For heart rate>130 Verapamil HCl (Calan Tab) 80 mg PO TID [facility] Last Admin: 08/16/17 09:04 Dose: 80 mg - Labs Labs: 08/16/17 05:30 08/16/17 05:30 PT 10.7 SECONDS (9.4-12.5) 08/13/17 17:26 INR 0.98 (0.93-1.08) 08/13/17 17:26 APTT 56.1 Seconds (25.1-36.5) H 08/16/17 07:43 - Constitutional Appears: Well, Non-toxic, No Acute Distress - Eye Exam Eye Exam: Normal appearance - ENT Exam ENT Exam: Mucous Membranes Moist - Respiratory Exam Respiratory Exam: NORMAL BREATHING PATTERN Additional comments: decreased breath sounds at bases, crackles - Cardiovascular Exam Cardiovascular Exam: REGULAR RHYTHM, +S1, +S2 - GI/Abdominal Exam GI & Abdominal Exam: Soft, Normal Bowel Sounds - Extremities Exam Extremities Exam: Pedal Edema - Neurological Exam Neurological Exam: Alert, Awake Assessment and Plan - Assessment and Plan (Free Text) Assessment: 87yo female a/w SOB, CHF exacerbation, Aflutter CHF, acute diastolic CHF Aflutter, now in NSR HTN Hypothyroidism - currently afebrile, HD stable, comfortable on high flow 60%, now in NSR, with no major complaints - ECHO showed EF of 55%, Aortic sclerosis, borderline concentric LVH, M.R. severe, Moderate T.R. and Moderate Pulmonary hypertension Recommend: - titrate off high flow - monitor for fevers, follow up cultures, procalcitonin - BP control - rate control, Verapamil - Lopressor - A/C Heparin - follow up cardiology - FS control - Synthroid - cont with IV diuresis, strict I/Os, daily weights - ASA, Plavix, Statin - GI ppx - DVT ppx, Heparin - transfer to telemetry
--- NOTE | 2017-08-16 11:13 | CP.PCM.PN ---
<NavdeepCielon - Last Filed: 08/16/17 18:39> Subjective - Date & Time of Evaluation Date of Evaluation: 08/16/17 Time of Evaluation: 11:10 - Subjective Subjective: Patient seen and examined at bedside. Per nursing no acute events occurred overnight. The patient reports some gas and being unable to pass her bowels yet. The patient denies any palpitations, chest pain, fevers, chills, nausea, vomiting, lightheadedness, dizziness, changes in vision, headaches, syncopal episodes, or any other complaints. Objective - Vital Signs/Intake and Output Vital Signs (last 24 hours): Temp Pulse Resp BP Pulse Ox 98.8 F 76 20 126/56 L 93 L 08/16/17 08:00 08/16/17 10:14 08/16/17 04:00 08/16/17 10:14 08/16/17 04:00 Intake and Output: 08/16/17 08/16/17 06:59 18:59 Intake Total 500 Output Total 1600 Balance -1100 - Medications Medications: Current Medications Aspirin (Aspirin Chewable) 81 mg PO DAILY [facility] Last Admin: 08/16/17 09:04 Dose: 81 mg Atorvastatin Calcium (Lipitor) 10 mg PO DIN [facility] Last Admin: 08/15/17 17:40 Dose: 10 mg Clopidogrel Bisulfate (Plavix) 75 mg PO DAILY [facility] Last Admin: 08/16/17 09:05 Dose: 75 mg Enoxaparin Sodium (Lovenox) 30 mg SC DAILY [facility] PRN Reason: Protocol Last Admin: 08/16/17 10:15 Dose: 30 mg Furosemide (Lasix) 40 mg IVP BID [facility] Stop: 08/16/17 23:59 Last Admin: 08/16/17 09:04 Dose: 40 mg Furosemide (Lasix) 40 mg IV DAILY [facility] Insulin Detemir (Levemir) 30 unit SC HS [facility] Last Admin: 08/15/17 21:30 Dose: 30 unit Insulin Human Lispro (Humalog Low) 0 units SC ACHS [facility] PRN Reason: Protocol Last Admin: 08/16/17 07:33 Dose: Not Given Insulin Human Lispro (Humalog) 6 units SC AC [facility] Last Admin: 08/16/17 07:33 Dose: 6 units Levothyroxine Sodium (Synthroid) 150 mcg PO ACB [facility] Last Admin: 08/16/17 07:48 Dose: 150 mcg Lisinopril (Zestril) 2.5 mg PO DAILY [facility] Last Admin: 08/16/17 10:14 Dose: 2.5 mg Metoprolol Tartrate (Lopressor) 25 mg PO BID [facility] Last Admin: 08/16/17 10:14 Dose: 25 mg Pantoprazole Sodium (Protonix Ec Tab) 40 mg PO DAILY [facility] Last Admin: 08/16/17 09:05 Dose: 40 mg Simethicone (Mylicon Liq) 40 mg PO QID [facility] Last Admin: 08/16/17 09:05 Dose: 40 mg Verapamil HCl (Verapamil Inj) 2.5 mg IVP Q6H PRN PRN Reason: For heart rate>130 Verapamil HCl (Calan Tab) 80 mg PO TID [facility] Last Admin: 08/16/17 09:04 Dose: 80 mg - Labs Labs: 08/16/17 05:30 08/16/17 05:30 PT 10.7 SECONDS (9.4-12.5) 08/13/17 17:26 INR 0.98 (0.93-1.08) 08/13/17 17:26 APTT 56.1 Seconds (25.1-36.5) H 08/16/17 07:43 - Head Exam Head Exam: ATRAUMATIC, NORMAL INSPECTION, NORMOCEPHALIC - Eye Exam Eye Exam: EOMI, Normal appearance, PERRL. absent: Periorbital tenderness Pupil Exam: NORMAL ACCOMODATION, PERRL. absent: Irregular, Unequal - ENT Exam ENT Exam: Mucous Membranes Moist, Normal Oropharynx - Neck Exam Neck Exam: Normal Inspection. absent: Lymphadenopathy, Thyromegaly - Respiratory Exam Respiratory Exam: Clear to Ausculation Bilateral, NORMAL BREATHING PATTERN. absent: Wheezes, Respiratory Distress - Cardiovascular Exam Cardiovascular Exam: REGULAR RHYTHM, +S1, +S2. absent: Gallop, Rubs - GI/Abdominal Exam GI & Abdominal Exam: Soft, Normal Bowel Sounds. absent: Hyperactive Bowel Sounds - Extremities Exam Extremities Exam: Full ROM. absent: Joint Swelling, Pedal Edema, Tenderness - Back Exam Back Exam: NORMAL INSPECTION. absent: CVA tenderness (L), CVA tenderness (R), paraspinal tenderness - Neurological Exam Neurological Exam: Alert, Awake, Normal Gait, Oriented x3 - Psychiatric Exam Psychiatric exam: Normal Affect, Normal Mood. absent: Anxious, Depressed - Skin Skin Exam: Dry, Intact, Normal Color Assessment and Plan - Assessment and Plan (Free Text) Assessment: Patient is a 87 year old female, whose past medical history includes diabetes, hypertension, and hypothyroidism, who presents to the ED via EMS for evaluation and treatment of chest pain and shortness of breath. Plan: Neurology -No focal deficits appreciated. -No further Intervention at this time required. Cardiology Junctional Rhythm with Tachycardia - rate control with cardizem one type dose- limited use due to hypotension, continue Lopressor- hold if HR is less than 80 bpm, SBP less than 100mmHg - CHADVASC2 - greater than 2, anticoagulation indicated- heparin gtt started - EKG reviewed and appreciated - Junctional Tachycardia-- RVR HR 126, QtC 567 - ECHO showed EF of 55%, Aortic sclerosis, borderline concentric LVH, M.R. severe, Moderate T.R. and Moderate Pulmonary hypertension -Cardiology Consulted. Rec's appreciated. Acute on Chronic CHF Exacerbation - HR and BP reviewed, trended, and appreciated - CXR appreciated- bilateral pleural effusions noted - Continue strict i and o - Continue daily weight - Bipap changed to High Flow. Will continue to taper High flow. Expected to the transferred to Telemetry tomorrow or Friday. Hx of Htn - Continue Lopressor - holding parameters- do not administer if HR is > 100 bpm if BPs trend up Hx of Hyperlipidemia - c/w statin - lipid profile appreciated. Bilateral leg pain -Duplex U/S negative. Chest Pain - rule out ACS - EKG reviewed and appreciated - Junctional Tachycardia-- RVR HR 126, QtC 567 - Troponin :.06 x3. - Continue aspirin and plavix -Triglycerides: 94, Cholesterol: 144, LDL: 63, and HDL: 57. -Cardio rec's appreciated. Infectious Disease SIRS Criteria Met - Leukocytosis currently at 12.3. Patient afebrile. - blood cultures(-)x 48 hours. Will f/u with final results. -MRSA final result: Negative - urine culture ordered. Will f/u with results. - procalcitonin .29 Endocrinology Hx of Diabetes - continue ISS medium.Continue Levemir 10 Units Q12. - Continue to monitor with fingersticks ACHS - Continue carb consistent Hx of Hypothyroidism - TSH 27.10. Will continue to re-enforce compliance with the patient.. - continue synthroid Prophylaxis - DVT ppx- Lovenox - GI ppx- protonix <Perfecto Abreu - Last Filed: 08/17/17 12:27> Objective - Vital Signs/Intake and Output Vital Signs (last 24 hours): Temp Pulse Resp BP Pulse Ox 97.6 F 75 4 L 102/38 L 79 L 08/16/17 16:00 08/16/17 23:12 08/17/17 00:01 08/16/17 23:12 08/16/17 23:12 - Labs Labs: 08/17/17 00:00 08/17/17 00:00 PT 10.7 SECONDS (9.4-12.5) 08/13/17 17:26 INR 0.98 (0.93-1.08) 08/13/17 17:26 APTT 56.1 Seconds (25.1-36.5) H 08/16/17 07:43 Attending/Attestation - Attestation I have personally seen and examined this patient.: Yes I have fully participated in the care of the patient.: Yes I have reviewed all pertinent clinical information, including history, physical exam and plan: Yes Notes (Text): 08/17/17 12:22 attending note; Patient seen and examined with resident in ICU. patient is on high flow oxygen. Heart rate is better controlled. Blood pressure is stabilized. Patient is a 87 year old female with history of IDDM, hypertension, and hypothyroidism, who was admitted for evaluation of dyspnea and palpitations. She was found to have afib; A. fib; rate control. On metoprolol, verapamil. Echo revealed EF of 55%, Aortic sclerosis, borderline concentric LVH, M.R. severe, Moderate T.R. and Moderate Pulmonary hypertension. CXR showed venous congestion and is on lasix. Indeterminate troponins and is currently on aspirin, plavix. heparin drip disontinued. On subcutaneous Lovenox. Cardiology evaluation with Dr. Michele appreciated. Diabetes; continue insulin. Add long-acting Levemir. TSH is elevated. Continue synthroid. constipation; denies any nausea, vomiting. Got enema with good results. continue to monitor the patient closely in ICU. Case discussed with workers' compensation claims examiner in detail. Upon discharge patient will follow up with Dr Sol.
[2017-08-16] MEDS ORDERED: Potassium Chloride 20 mEq ER Tab PO STA (13:01)
--- NOTE | 2017-08-16 14:23 | PN ---
DATE: 08/15/2017 REASON FOR CONSULTATION AND FOLLOWUP: Cardiac evaluation, AFib with rapid ventricular congestive heart failure, now converted to normal sinus. SUBJECTIVE: The patient denies any chest pain, shortness of breath, or any palpitation. OBJECTIVE: GENERAL: Not in apparent distress. Lying flat in the bed. VITAL SIGNS: Temperature afebrile, heart rate 91, blood pressure 147/82. HEENT: PERRLA. Extraocular muscles intact. NECK: Supple. No carotid bruits or thyromegaly. CHEST: Clear to auscultation. HEART: S1 and S2, regular. ABDOMEN: Soft. EXTREMITIES: Clubbing and cyanosis negative. LABORATORY DATA: Blood workup as follows: WBC 12.3, hemoglobin , hematocrit 32.9, platelet count 406. Chemistry shows sodium 133, potassium 3.6, chloride 97, carbon dioxide 26, anion gap of 14, BUN 20, creatinine 1.0. IMPRESSION: An 87-year-old female with a past medical history significant for coronary artery disease, ALLERGIC TO CONTRAST DYE, cerebrovascular accident, history of paroxysmal atrial fibrillation, admitted with atrial fibrillation with rapid ventricular rate, Cardizem and verapamil were given, the patient converted to normal sinus. The patient did have a repeat echo done yesterday that shows ejection fraction 55%. The patient with an atrial fibrillation at that time, severe mitral regurgitation, eccentrically directed jet, moderate tricuspid regurgitation, moderate pulmonary hypertension, right ventricle systolic pressure 61. RECOMMENDATION: Continue verapamil to control the heart rate, 80 mg 3 times a day. We will change heparin to Lovenox. Continue digoxin. I will give one dose of digoxin to control the heart rate. Continue Lasix IV to keep the negative fluid balance that we changed to once a day. History of coronary artery disease. HISTORY OF SEVERE ALLERGY TO DYE. Medical treatment recommended at this time. Goal is to keep controlled heart rate and keep lung dry and since the patient has severe MR, we will control the heart rate and we will add low dose of SHABANA as renal function and blood pressure tolerate. We will follow with you. We will increase levothyroxine to 200 mcg because TSH is 45. We will change the Lasix from twice daily to once a day daily from tomorrow. The patient being followed by Dr. Demetrice Lacey. We will decrease levothyroxine to 150 mg. We will continue recommendation of soybean specialties cook. Amadeo Michele MD [facility] # [id number]
[2017-08-16 16:33] VITALS: TEMP 97.6
[2017-08-16] MEDS ORDERED: Levalbuterol 0.63 MG/3 ML Inhal Soln UD IH ONE (20:31)
[2017-08-16] MEDS: Insulin Detemir 100 units/ml Vial (Levemir) SC SCH (21:38)
[2017-08-16] MEDS ORDERED: Insulin Lispro (HUMAlog) HIGH Coverage SC SCH (22:00)
[2017-08-16] MEDS ORDERED: Sodium Chloride 0.9% 500 ML IV STA (22:25)
[2017-08-16] MEDS ORDERED: DOPamine 400mg/250ml D5W 400 MG/250 ML BAG IV PRN (22:37)
[2017-08-16] MEDS ORDERED: NOREPINEPHRINE BIT/0.9 % NACL 4 MG/250 ML BAG IV PRN (23:28)
--- NOTE | 2017-08-17 00:10 | PCM.PROC ---
Procedures Attestation:: I certify that I have explained the specified Operation(s) or Procedure(s), risks, benefits and reasonable alternatives to the Patient and/or other person responsible. The opportunity was given to ask questions and all questions answered - Intubation Time Out Performed: No (emergent intubation ) Sedative: None Laryngoscope: [place] ET Tube Size: 7.5 ET Tube Secured Locarion: Lips ET Tube Placement Confirmation: Visualized Passing Through Cords, Breath Sounds Equal Bilaterally, Confirmation w/Capnometry Procedure Immediate Complications: Difficult Intubation Additional comments: Initial attempt made with glidescope, vocal cords visualized however unable to pass through the cords. Converted to MAC-3 and intubated with visualization of ETT passing through the cords without issue.
--- NOTE | 2017-08-17 00:13 | PCM.PROC ---
Procedures Attestation:: I certify that I have explained the specified Operation(s) or Procedure(s), risks, benefits and reasonable alternatives to the Patient and/or other person responsible. The opportunity was given to ask questions and all questions answered - Central Line Placement Right Femoral Triple Lumen Catheter Pt. Placed on Pulse Ox Monitor: Yes Ultrasound Used for Placement: Yes Central Line Lumen Inserted: triple Central Line Length: 20 cm Post Procedure: Sutured in Place, Good Blood Return, All Ports Aspirated, Flushed, Capped Secured by: Securement device Post procedure dressing: Clear vapor permeable, Chlorhexidine disc (Biopatch) Patient Tolerated Procedure: Other (patient unconscious ) Additional Comments: Emergent central line placed in the right femoral region due to patient being hemodynamically unstable s/p cardiac arrest requiring vasopressors. Central line placed without full sterile measures due to urgency immediately after cardiac arrest and ROSC in the right groin.
[2017-08-17 00:17] VITALS: BP 102/38; PULSE 75; RESP 4; O2SAT 79
--- NOTE | 2017-08-17 00:24 | CP.PCM.PRO ---
Pronouncement of Note - Clinical Findings Physical Exam: No Response Verbal/Painful Stimuli, Absent Peripheral Pulses{ Carotid & Femoral}, Absent Heart & Breath Sounds, No Corneal Reflex, Pupils Fixed & Dilated, Absence of Vital Signs - Pronouncement Time Time of Pronouncement of : 23:58 - Notifications Pronouncement Notifications: Family Notified, Atending Notified Environmental Inspector Notified: No - Autopsy Autopsy Requested: No [place] [id number] Additional Comments: Patient after failing to achieve ROSC during her 2nd code blue tonight. Patient's family (son and two daughters) all present in the waiting room were notified. Condolences offered; EDRS completed and certified myself.
--- NOTE | 2017-08-17 00:29 | PCM.RRT ---
ESTHETICIAN AND MANAGER [employer] Nurse Assessment - Situation Date: 08/17/17 Time ESTHETICIAN AND MANAGER [employer] was called: 22:30 [employer]HETICIAN AND MANAGER [employer] Location:: Critical Care Unit Room Number: 129-3 [employer]HE[employer]IC[facility] [employer] Reason for Call: Bradycardia, Change in Mental Status ESTHETICIAN AND MANAGER [employer] Called By: RN - Finger Stick Blood Glucose Finger Stick Blood Glucose: 497 I.Reason for ESTHETICIAN AND MANAGER [employer] - A) Acute Change in Patient: (Select all that apply): Acute change in mental status
[2017-08-17 00:37] LABS: BILIRUBIN,TOTAL 0.9 mg/dL (0.2-1.3); CALCIUM 10.3 mg/dL (8.4-10.5); MAGNESIUM 2.5 mg/dL (1.7-2.2); PHOSPHOROUS 9.1 mg/dL (2.5-4.5); POTASSIUM 5.1 mmol/L (3.6-5.0); TOTAL PROTEIN 5.2 g/dL (5.8-8.3)
[2017-08-17 00:39] LABS: HEMATOCRIT 28.4 % (36.0-48.0); MEAN CORPUSCULAR HEMOGLOBIN 30.7 pg (25.0-35.0); MEAN PLATELET VOLUME 9.8 fl (7.0-11.0); WHITE BLOOD COUNT 14.8 10^3/ul (4.5-11.0)
[2017-08-17 00:41] LABS: TROPONIN I 0.05 ng/mL
--- NOTE | 2017-08-17 01:25 | PCM.RRT ---
MESSAGING ARCHITECT Nurse Assessment - Situation Date: 08/17/17 Time MESSAGING ARCHITECT was called: 22:38 MESSAGING ARCHITECT Location:: Critical Care Unit I.Reason for MESSAGING ARCHITECT - A) Acute Change in Patient: Subjective: Ivette juan was called on patient at 22:30 after patient found to be lethargic and unresponsive. Patient vital signs were noted to be bradycardic and hypotesive. Patient did not have a pulse ACLS protocol was started and chest compressions were initiated. During resuscitation efforts 5 doses of epinephrine , 2 doses of bicarb, 1 dose of calcium administered. Patient was intubated with MAC blade and placed on ventilator. Dobutamine drip was initiated during resuscitation efforts. After multiple rounds of CPR ROSC was attained. US guided central line was placed in left femoral vein. Dopamine and levophed were initiated. At 23:50 patient was found to be pulseless and unresponsive. Ivette juan was called and CPR resumed. 3 rounds of epinephrine were administered. Patient found to be in asystole. After multiple rounds of ACLS patient was unable to be resuscitated. Time of was called at 23:58. Family and PMD notified. - Neurological Status (Select all that apply): absent: Responsive - Respiratory Oxygen Delivery Method: BiPAP @%, Intubated - Constitutional Appears: In Acute Distress - Head Head Exam: ATRAUMATIC, NORMAL INSPECTION, NORMOCEPHALIC - Cardiovascular Exam Cardiovascular Exam: Bradycardia Additional comments: Asystole - GI/Abdominal Exam GI & Abdominal Exam: Distended, Soft - Neurological Exam Neurological Exam: absent: Alert, Awake, Oriented x3
--- NOTE | 2017-08-18 08:56 | PN ---
DATE: 08/16/2017 LOCATION: ICU 129, room #3. SUBJECTIVE: This is an 87-year-old female admitted with congestive heart failure and also supervening hyperglycemic accelerations related to uncontrolled type II insulin requiring diabetes now being followed closely for metabolic management. Moreover, she also had moderate hypothyroidism as noted, but remained hemodynamically stable otherwise. LABORATORY DATA: The latest chemistry shows a BUN of 20, sodium 133, potassium 3.6, chloride 97, CO2 26, glucose 197, and creatinine 1.0. Initial TSH was 45.0. The repeat thyroid studies obtained today are still pending at this time. Her glucose levels are extremely fluctuating ranging from 228 to 317 and 349 mg/dL. ASSESSMENT AND PLAN: So at this time, because of the supervening congestive heart failure, we will prudently titrate her levothyroxine dosing regimen and increase the levothyroxine from 125 to 150 mg/dL as ordered. We will also modify her current insulin regimen and add Humalog given at 6 units subcu t.i.d. to start this morning as ordered. We will also continue the modified Levemir given overnight to 30 units subcu at bedtime daily as given. We will titrate incremental as indicated to optimize metabolic control. We will follow with you. Demetrice Lacey MD
--- NOTE | 2017-08-18 08:59 | CON ---
DATE: 08/15/2017 ENDOCRINOLOGY CONSULTATION LOCATION: In CCU 129, room 3. HISTORY OF PRESENT ILLNESS: This is an 87-year-old female with known history of type 2 diabetes, hypertension, presenting here with progressive shortness of breath and palpitations. She was evaluated to be in congestive heart failure with supervening hypoxemia and desaturation and has now been admitted to ICU for closer hemodynamic monitoring and is being referred also for endocrine evaluation because of hypothyroidism and uncontrolled type 2 insulin-requiring diabetes with recent hyperglycemic exacerbation as noted thereof. PAST MEDICAL HISTORY: As mentioned above, history of type 2 insulin-requiring diabetes, currently on a combination of Levemir given as 50 units subcu in the morning with a combination of oral hypoglycemic therapy with metformin at 850 once daily and Amaryl at 4 mg daily and Tradjenta at 5 mg daily as ordered; history of hypertension and dyslipidemia; history of prior thyroidectomy with subsequent surgical hypothyroidism, currently on levothyroxine given as 125 mcg daily. She also has prior cholecystectomy and hysterectomy procedures as noted. No known coronary artery disease at this time as noted. SOCIAL HISTORY: The patient has supportive family. No known substance use. FAMILY HISTORY: Positive for hypertension and heart disease. REVIEW OF SYSTEMS: As mentioned above. Admits to bifrontal headaches with progressive bouts of dizziness and lightheadedness, worse on the day of admission. Also admits to generalized body weakness with easy fatigability and tiredness and suboptimal energy level. Admits to precordial chest pain with progressive shortness of breath, initially on exertion and then at rest with paroxysmal nocturnal dyspnea. PHYSICAL EXAMINATION: GENERAL: Average built female, in no apparent distress. VITAL SIGNS: Blood pressure of 150/100; pulse of 100 beats per minute, regular; temperature 98; respirations 20; height is 5 feet; weight is 121 pounds. HEENT: Head normocephalic. Eyes anicteric with pink conjunctivae. Funduscopy is not possible at this time. Ears, nose and throat otherwise normal. NECK: Supple. Thyroid gland is normal in size. No carotid bruits or cervical adenopathy. CARDIOPULMONARY: Has some adynamic precordium. S1, S2 is rapid and regular. LUNGS: Clear to auscultation. ABDOMEN: Flat, soft with positive bowel sounds. EXTREMITIES: There is +2 bipedal edema. Pulses are +2 bilaterally. LABORATORY DATA: Hematology; WBC is 21.6, hemoglobin of 13, hematocrit of 40, MCV 92, platelets 428. The chemistry showed a BUN of 23, sodium 131, potassium 4.0, chloride 97, CO2 of 23, glucose 295 and creatinine 0.9. The latest glucose has ranged from 201 to 398 mg/dL. Her TSH is as noted. ASSESSMENT: This is an 87-year-old female with uncontrolled and decompensated type 2 insulin-requiring diabetes presenting here with congestive heart failure and evaluated marked hyperglycemic exacerbations which just occur in the presence of underlying insulin resistance thereof. She also has moderate hypothyroidism on the background of a prior thyroidectomy and surgical resection in the past as noted. PLAN OF MANAGEMENT: We will gently titrate levothyroxine dose regimen to obviate further worsening of her cardiac decompensation and underlying congestive heart failure. We will also modify her current insulin regimen and switch her over to a more physiologic basal and bolus insulin drug combination with Levemir to be given as 30 units at bedtime and Humalog to be given as 12 units before each meal to start today. We will modify the coverage scale to obviate hypoglycemia and detailed orders have been given. We will obtain serial thyroid studies and titrate her dose regimen accordingly. Demetrice Lacey MD
== END 2017-08-16 23:58 | DRG 291 ==
LOC: ED 17:11 → ERH 19:56 → CCU 23:12
PROVIDERS: ADMIT Hospitalist; ATTEND Internal Medicine
PROC: 5A1935Z Respiratory Ventilation, Less than 24 Consecutive Hours (ICD-10-PCS; principal; 2017-08-16)
PROC: 5A12012 Performance of Cardiac Output, Single, Manual (ICD-10-PCS; 2017-08-16)
PROC: 0BH18EZ Insertion of Endotracheal Airway into Trachea, Via Natural or Artificial Opening Endoscopic (ICD-10-PCS; 2017-08-16)
PROC: 06HY33Z Insertion of Infusion Device into Lower Vein, Percutaneous Approach (ICD-10-PCS; 2017-08-16)
DX: I11.0 Hypertensive heart disease with heart failure (principal); J96.01 Acute respiratory failure with hypoxia; E11.65 Type 2 diabetes mellitus with hyperglycemia; E88.81 Metabolic syndrome and other insulin resistance; I08.3 Combined rheumatic disorders of mitral, aortic and tricuspid valves; I48.0 Paroxysmal atrial fibrillation; I48.92 Unspecified atrial flutter; R65.10 Systemic inflammatory response syndrome (SIRS) of non-infectious origin without acute organ dysfunction; I47.1 Supraventricular tachycardia; I27.20 Pulmonary hypertension, unspecified; I50.31 Acute diastolic (congestive) heart failure; E78.5 Hyperlipidemia, unspecified; E89.0 Postprocedural hypothyroidism; I25.110 Atherosclerotic heart disease of native coronary artery with unstable angina pectoris; I70.0 Atherosclerosis of aorta; K21.9 Gastro-esophageal reflux disease without esophagitis; K59.00 Constipation, unspecified; Z79.01 Long term (current) use of anticoagulants; Z79.02 Long term (current) use of antithrombotics/antiplatelets; Z79.4 Long term (current) use of insulin; Z79.82 Long term (current) use of aspirin; Z79.899 Other long term (current) drug therapy; Z86.73 Personal history of transient ischemic attack (TIA), and cerebral infarction without residual deficits; Z91.041 Radiographic dye allergy status; Z90.710 Acquired absence of both cervix and uterus; Z90.49 Acquired absence of other specified parts of digestive tract; H26.9 Unspecified cataract; R39.15 Urgency of urination; Z87.892 Personal history of anaphylaxis; M19.90 Unspecified osteoarthritis, unspecified site